=== PATIENT | female | born 1960 | race Two or more races ===

== ENCOUNTER 2024-10-20 09:51 | Inpatient (IN) | payer MEDICAID ==
[~2024-10-20] VITALS: Ht 149.9 cm; Wt 97.1 kg
--- NOTE | 2024-10-20 10:25 | ED.PDOC ---
History of Present Illness HPI Comments 64-year-old female is Urdu-speaking presents to the ER with prior medical history of hypertension in the chief complaint of abdominal pain. Patient reports on having N/V/D few days with abdominal pain. Denies chills, fever, SOB, CP. No other associated symptoms, modifiers, recent injuries or sick contac ts present at this time. Chief Complaint: Nausea/Vomiting Time Seen by MD: 10:15 Primary Care Provider: MELONY Reviewed Notes: Nurses Notes, Medications, Allergies Allergies: Coded Allergies: NO KNOWN ALLERGIES (Unverified , 09/28/12) Home Meds No Active Prescriptions or Reported Meds Information Source: Patient Mode of Arrival: Ambulatory Severity: Moderate Timing: Days Duration: Since onset, Days Prehospital treatment: None Past Medical History PAST MEDICAL HISTORY: HTN Surgical History: Denies all surgeries TRANSPORT ANALYST History: No Pertinent TRANSPORT ANALYST History Family History Family History: Reviewed,noncontributory to illness, Unknown Social History Smoker: Non-Smoker Alcohol: Denies ETOH Use Drugs: Denies Drug Use Lives In: Home Constitutional: denies: chills, diaphoresis, fatigue, fever, malaise, sweats, weakness, others EENTM: denies: blurred vision, double vision, ear bleeding, ear discharge, ear drainage, ear pain, ear ringing, eye pain, eye redness, hearing loss, mouth pain, mouth swelling, nasal discharge, nose bleeding, nose congestion, nose pain, photophobia, tearing, throat pain, throat swelling, voice changes, others Respiratory: denies: cough, hemoptysis, orthopnea, SOB at rest, shortness of breath, SOB with excertion, stridor, wheezing, others Cardiovascular: denies: chest pain, dizzy spells, diaphoresis, Dyspnea on exertion, edema, irregular heart beat, left arm pain, lightheadedness, palpitations, PND, syncope, others Gastrointestinal: reports: abdominal pain, diarrhea, nausea, vomiting; denies: abdomen distended, blood streaked bowels, constipated, dysphagia, difficulty swallowing, hematemesis, melena, poor appetite, poor fluid intake, rectal bleeding, rectal pain, others Genitourinary: denies: abnormal vagina bleeding, burning, dyspareunia, dysuria, flank pain, frequency, hematuria, incontinence, pain, , vagina disc harge, urgency, others Neurological: denies: dizziness, fainting, headache, left sided numbness, left sided weakness, numbness, paresthesia, pre-existing deficit, right sided numbness, right sided weakness, seizure, speech problems, tingling, tremors, weakness, others Musculoskeletal: denies: back pain, gout, joint pain, joint swelling, muscle pain, muscle stiffness, neck pain, others Integumetry: denies: bruises, change in color, change in hair/nails, dryness, laceration, lesions, lumps, rash, wounds, others Allergic/Immunocompromised: denies: Difficulty Healing, Frequent Infections, Hives, Itching, others Hematologic/Lymphatic: denies: anemia, blood clots, easy bleeding, easy bruising, swollen glands, others Endocrine: denies: excessive hunger, excessive sweating, excessive thirst, excessive urination, flushing, intolerance to cold, intolerance to heat, unexplained weight gain, unexplained weight loss, others Psychiatric: denies: anxiety, bipolar disorder, depression, hopeless, panic disorder, schizophrenia, sleepless, suicidal, others All Other Systems: Reviewed and Negative Physical Exam General Appearance: Moderate Distress, Normal HEENT: Normal ENT Inspection, Pharynx Normal, TMs Normal Neck: Full Range of Motion, Non-Tender, Normal, Normal Inspection Respiratory: Chest Non-Tender, Lungs Clear, No Accessory Muscle Use, No Respiratory Distress, Normal Breath Sounds Cardiovascular: No Edema, No JVD, No Murmur, No Gallop, Normal Peripheral Pulses, Regular Rate/Rhythm Breast Exam: Deferred Gastrointestinal: Diffuse, No Organomegaly, No Pulsatile Mass, Normal Bowel Sounds, Soft Genitalia: Deferred Pelvic: Deferred Rectal: Deferred Extremities: No calf tenderness, Normal capillary refill, Normal inspection, Normal range of motion, Non-tender, No pedal edema Musculoskeletal : Apperance: Normal Neurologic: Alert, 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 Was a procedure done?: No EKG EKG : Pulse Rate (adult): 117 [place]: Normal Cardiac Rhythm: ST Block: None Hypertrophy: None ST: Normal Differential Dx Considerations may include: Colitis Electrolyte imbalance X-Ray, Labs, Meds, VS Vital Signs Date Time Temp Pulse Resp B/P (MAP) Pulse Ox O2 Delivery O2 Flow Rate FiO2 10/20/24 12:12 98.8 117 16 134/66 (88) 94 98.8 10/20/24 12:12 118 16 94 Room Air 10/20/24 10:56 117 10/20/24 10:25 117 10/20/24 09:59 117 10/20/24 09:52 98.7 129 22 159/83 96 98.7 Lab Test 10/20/24 13:03 10/20/24 11:06 10/20/24 11:05 Range/Units Lactic Acid Level 1.5 0.4-2.0 mmol/L White Blood Count 18.4 H 4.4-10.8 10^3/uL Red Blood Count 4.54 4.0-5.20 10^6/uL Hemoglobin 14.8 12.2-16.2 g/dL Hematocrit 44.5 36.0-46.0 % Mean Corpuscular Volume 98.1 80.0-100.0 fL Mean Corpuscular Hemoglobin 32.6 H 28.0-32.0 pg Mean Corpuscular Hemoglobin Concent 33.2 32.0-36.0 g/dL Red Cell Distribution Width 15.1 H 11.8-14.3 % Platelet Count 240 140-450 10^3/uL Mean Platelet Volume 8.7 6.9-10.8 fL Neutrophils (%) (Auto) 37.0-80.0 % Lymphocytes (%) (Auto) 10.0-50.0 % Monocytes (%) (Auto) 0.0-12.0 % Basophils (%) (Auto) 0.0-2.0 % Neutrophils # (Auto) 1.6-8.6 10 ^3/uL Lymphocytes # (Auto) 0.4-5.4 10 ^3/uL Monocytes # (Auto) 0-1.3 10 ^3/uL Differential Total Cells Counted 100.0 100 Neutrophils % (Manual) 71 37.0-80.0 Band Neutrophils % (Manual) 14 Lymphocytes % (Manual) 10 10.0-50.0 Monocytes % (Manual) 5 0-12 Eosinophils % (Manual) 0 0-7 Basophils % (Manual) 0 0.0-2.0 Metamyelocytes % (manual) 0 Myelocytes % (Manual) 0 Promyelocytes % (Manual) 0 Blast Cells % (Manual) 0 Reactive Lymphocytes 0 Platelet Estimate Adequate Poikilocytosis (manual) Slight Anisocytosis (manual) Slight Stomatocytes Few Troponin I High Sensitivity 75 *H </=34 ng/L Sodium Level 134 L 136-145 mmol/L Potassium Level 3.3 L 3.5-5.1 mmol/L Chloride Level 102 98-107 mmol/L Carbon Dioxide Level 18 L 20-31 mmol/L Anion Gap 14 5-15 Blood Urea Nitrogen 11 9-23 mg/dL Creatinine 1.19 H 0.550-1.02 mg/dL Glomerular Filtration Rate Calc 51 >90 mL/min BUN/Creatinine Ratio 9.2 L 10.0-20.0 Serum Glucose 175 H 74-106 mg/dL Calcium Level 9.3 8.7-10.4 mg/dL Total Bilirubin 0.7 0.2-1.0 mg/dL Aspartate Amino Transferase (AST) 32 13-40 U/L Alanine Aminotransferase (ALT) 26 7-40 U/L Alkaline Phosphatase 100 46-116 U/L Total Protein 8.2 5.7-8.2 g/dL Albumin 5.0 H 3.2-4.8 g/dL Lipase 26 12-53 U/L Current Medications Medications (Trade) Dose Ordered Sig/Olga Route Start Time Stop Time Status Last Admin Ondansetron HCl (Zofran) 4 mg ONCE ONCE IV 10/20/24 10:15 10/20/24 10:16 DC 10/20/24 15:41 Morphine Sulfate 4 mg ONCE ONCE IV 10/20/24 10:15 10/20/24 10:16 DC 10/20/24 15:40 Pantoprazole Sodium (Protonix) 40 mg ONCE ONCE IV 10/20/24 10:15 10/20/24 10:16 DC 10/20/24 15:40 Ceftriaxone Sodium 50 ml @ 100 mls/hr ONCE ONCE IV 10/20/24 12:00 10/20/24 12:29 DC 10/20/24 16:03 Metronidazole 100 ml @ 100 mls/hr ONCE ONCE IV 10/20/24 12:00 10/20/24 12:59 DC 10/20/24 15:40 Sodium Chloride 1,000 ml @ 1,000 mls/hr Q1H ONCE IV 10/20/24 12:00 10/20/24 12:59 DC 10/20/24 15:41 Patient alert. Complaining of abdominal pain. Vitals stable. Answering questions. Potassium is low. Was given potassium. Establish intravenous access. Was given fluids. Was given Rocephin. Was given Flagyl. WBC elevated. Tachycardia. Blood sugar elevated. Cardiac marker elevated. Explained to the patient. Continue to monitor. Time of 1ST Reevaluation: 10:45 Reevaluation 1ST: Unchanged Patient Education/Counseling: Diagnosis, Treatment, Prognosis Family Education/Counseling: No Family Present SEPSIS Sepsis Screen Date sepsis recognized/suspect: Oct 20, 2024 Time Sepsis recognized/suspect: 951 Recent Procedure: No On Antibiotic Therapy: No Respiratory Rate >20: Yes Heart Rate >90: Yes Temp<36 C (96.8 F) or >38.3 C: No SBP <90 or MAP <65 mmHG: No New Acute Mental Status Change: No Is the patient on CPAP, BIPAP,: No Physician Orders Electrocardigram (10/20/24 10:15) Electrocardigram (10/20/24 11:15) Electrocardigram (10/20/24 13:15) Urinalysis (10/20/24 10:14) Ct Ab Pel Wo Con-No Oral Or Iv (10/20/24 10:14) Blood Culture (10/20/24 11:57) Sodium Chloride 0.9% (10/20/24 12:00) Echo 2d Mode Cardiac Dop (10/20/24 13:11) Abdomen Limited (10/20/24 13:11) Vital Signs Date Time Temp Pulse Resp B/P (MAP) Pulse Ox O2 Delivery O2 Flow Rate FiO2 10/20/24 12:12 98.8 117 16 134/66 (88) 94 98.8 10/20/24 12:12 118 16 94 Room Air 10/20/24 10:56 117 10/20/24 10:25 117 10/20/24 09:59 117 10/20/24 09:52 98.7 129 22 159/83 96 98.7 Laboratory Tests Test 10/20/24 11:06 10/20/24 13:03 White Blood Count 18.4 10^3/uL (4.4-10.8) H Lactic Acid Level 1.5 mmol/L (0.4-2.0) Medications Medications Dose Ordered Sig/Olga Route Start Time Stop Time Status Last Admin Dose Admin Ceftriaxone Sodium 50 ml @ 100 mls/hr ONCE ONCE IV 10/20/24 12:00 10/20/24 12:29 DC 10/20/24 16:03 Metronidazole 100 ml @ 100 mls/hr ONCE ONCE IV 10/20/24 12:00 10/20/24 12:59 DC 10/20/24 15:40 Morphine Sulfate 4 mg ONCE ONCE IV 10/20/24 10:15 10/20/24 10:16 DC 10/20/24 15:40 Ondansetron HCl 4 mg ONCE ONCE IV 10/20/24 10:15 10/20/24 10:16 DC 10/20/24 15:41 Pantoprazole Sodium 40 mg ONCE ONCE IV 10/20/24 10:15 10/20/24 10:16 DC 10/20/24 15:40 Sodium Chloride 1,000 ml @ 1,000 mls/hr Q1H ONCE IV 10/20/24 12:00 10/20/24 12:59 DC 10/20/24 15:41 Departure 1 Departure Time of Disposition: 17:23 Impression: Primary Impression: Sepsis, unspecified organism Qualified Codes: A41.9 - Sepsis, unspecified organism Additional Impressions: Demand ischemia Uncontrolled diabetes mellitus Qualified Codes: E13.65 - Other specified diabetes mellitus with hyperglycemia Disposition: ADMITTED INPATIENT Admit to: Med Surg Condition: Guarded e-Prescriptions No Active Prescriptions or Reported Meds Critical Care Note Critical Care Time?: Yes (90 min-critical care time only) Stability Stability form required: No Heart Score Heart Score: Heart Score Response (Comments) Value History Slightly Suspicious 0 EKG Normal 0 Age 45-64 1 Risk Factors >3 or Hx ASHD 2 Troponin >3 x's Normal limit 2 Total 5 I personally scribed for RUBÉN PAIGE MD ([email or web address]) on 10/20/24 at 10:25. Electronically submitted by Hardeep Hernandez ([employer]). I personally scribed for RUBÉN PAIGE MD ([email or web address]) on 10/20/24 at 10:26. Electronically submitted by Hardeep Hernandez ([employer]). RUBÉN PAIGE MD Oct 20, 2024 10:25
--- NOTE | 2024-10-20 10:56 | DVH ---
Indication: upper abd pain n/v/d Technique: CT axial images of the abdomen and pelvis are obtained without contrast. Coronal and sagit kati reformats were obtained. Radiation Dose Information: CTDI volume is 13.69 mGy. Dose-length product is 707.95 mGy*cm Comparison: None FINDINGS: There is limited interpretation of the abdomen and pelvis without administration of intravenous contr ast. Lung bases demonstrate atelectasis. Adrenal glands, spleen, pancreas and liver unremarkable in shape. No CT evidence for cholelithiasis. Gallbladder distention and pericholecystic /gallbladder wall edema No hydronephrosis, nephrolithiasis. Stomach moderately distended. Small bowel loops normal in caliber. No secondary signs for appendicitis. Abdominal aortic atherosclerotic disease. Bladder nondistended. No free pelvic fluid. No inguinal lym phadenopathy. [id number] bilateral sacroiliac degenerative joint disease. Lagn-ss-byjpddid thoracolumbar dege nerative disc disease. IMPRESSION: No hydronephrosis/ nephrolithiasis. Atherosclerotic disease. No evidence for bowel obstruction. Gallbladder distention and pericholecystic/ gallbladder wall edema. Recommend abdominal ultrasound t o further characterize. No hydronephrosis / nephrolithiasis. Other findings as described.
[2024-10-20 11:43] LABS: Hematocrit 44.5 % (36.0-46.0); Hemoglobin 14.8 g/dL (12.2-16.2); Mean Corpuscular Hemoglobin 32.6 pg (28.0-32.0); Mean Corpuscular Volume 98.1 fL (80.0-100.0)
[2024-10-20 11:53] LABS: Alanine Aminotransferase 26 U/L (7-40); Albumin 5.0 g/dL (3.2-4.8); Alkaline Phosphatase 100 U/L (46-116); Anion Gap 14 (5-15); BUN/Creatinine Ratio 9.2 (10.0-20.0); Bilirubin, Total 0.7 mg/dL (0.2-1.0); Blood Urea Nitrogen 11 mg/dL (9-23); Calcium 9.3 mg/dL (8.7-10.4); Carbon Dioxide 18 mmol/L (20-31); Chloride 102 mmol/L (98-107); Glucose 175 mg/dL (74-106); Lipase 26 U/L (12-53); Potassium 3.3 mmol/L (3.5-5.1); Sodium 134 mmol/L (136-145); Total Protein 8.2 g/dL (5.7-8.2)
[2024-10-20 12:26] LABS: Anisocytosis Slight; Stomatocytes Few; Total Cells Counted 100.0 (100)
--- NOTE | 2024-10-20 12:43 | DVHHP2 ---
Admitting Diagnosis: Abdominal pain History of Present Illness 64-year-old female is [place]ib[place]ian-speaking presents to the ER with prior medical history of hypertension in the chief complaint of abdominal pain. Patient reports on having N/V/D few days with abdominal pain. Denies chills, fever, SOB, CP. No other associated symptoms, modifiers, recent injuries or sick contacts present at this time. PAST MEDICAL HISTORY: HTN Surgical History: Denies all surgeries CUSHION ASSEMBLER History: No Pertinent CUSHION ASSEMBLER History Family History Family History: Reviewed,noncontributory to illness, Unknown Social History Smoker: Non-Smoker Alcohol: Denies ETOH Use Drugs: Denies Drug Use Lives In: Home Patient Family History: Family history: Diabetes mellitus G8 MOTHER Allergies: Coded Allergies: NO KNOWN ALLERGIES (Unverified , 09/28/12) Home Meds No Active Prescriptions or Reported Meds Vital Signs Vital Signs Date Time Temp Pulse Resp B/P (MAP) Pulse Ox O2 Delivery O2 Flow Rate FiO2 10/20/24 12:12 98.8 117 16 134/66 (88) 94 98.8 10/20/24 12:12 Room Air Physical Exam Generally-64 years old woman, overweight, sitting on chair. Mild distress HEENT-atraumatic normocephalic Heart-sinus tachycardic Lungs clear to auscultate bilaterally Abdomen soft, mild tender, nondistended Musculoskeletal-no edema cyanosis AO x3, no focal deficits SEPSIS Sepsis Screen Date sepsis recognized/suspect: Oct 20, 2024 Time Sepsis recognized/suspect: 951 Recent Procedure: No On Antibiotic Therapy: No Respiratory Rate >20: Yes Heart Rate >90: Yes Temp<36 C (96.8 F) or >38.3 C: No SBP <90 or MAP <65 mmHG: No New Acute Mental Status Change: No Is the patient on CPAP, BIPAP,: No Physician Orders Electrocardigram (10/20/24 10:15) Electrocardigram (10/20/24 11:15) Electrocardigram (10/20/24 13:15) Urinalysis (10/20/24 10:14) Ct Ab Pel Wo Con-No Oral Or Iv (10/20/24 10:14) Troponin-I Hs (10/20/24 11:14) Blood Culture (10/20/24 11:57) Lactic Acid W/ Reflex Order (10/20/24 11:57) Sodium Chloride 0.9% (10/20/24 12:00) Echo 2d Mode Cardiac Dop (10/20/24 13:11) Abdomen Limited (10/20/24 13:11) Admit (10/20/24 13:15) Code Status (10/20/24 13:15) Vital Signs .PER UNIT PROTOCOL (10/20/24 13:15) Review Orders With Adm.Md (10/20/24 13:15) Encourage Activity As Tolerate (10/20/24 13:15) Npo (Nothing By Mouth) Diet (10/20/24 Lunch) Sodium Chloride Lock (Saline Lock Ns) (10/20/24 14:00) Docusate Sodium Capsule (Colace Capsule) (10/20/24 13:15) Acetaminophen Tablet (Tylenol Tablet) (10/20/24 13:15) Notify Md Of Changes From Base (10/20/24 13:15) Advance Directive (10/20/24 13:15) Patient Condition (10/20/24 13:15) Allergies (10/20/24 13:15) Hydrocodone-Acet 5/325mg Tab ([place] 5/32 (10/20/24 13:15) Hydromorphone Injection (Dilaudid Inject (10/20/24 13:15) Ondansetron Hcl (Zofran) (10/20/24 13:15) Ceftriaxone 1gm/50ml D5w (Rocephin) (10/21/24 09:00) Metronidazole 500mg/100ml (Flagyl 500mg/ (10/20/24 13:15) Vital Signs Date Time Temp Pulse Resp B/P (MAP) Pulse Ox O2 Delivery O2 Flow Rate FiO2 10/20/24 12:12 98.8 117 16 134/66 (88) 94 98.8 10/20/24 12:12 118 16 94 Room Air 10/20/24 10:56 117 10/20/24 10:25 117 10/20/24 09:59 117 10/20/24 09:52 98.7 129 22 159/83 96 98.7 Laboratory Tests Test 10/20/24 11:06 10/20/24 13:03 White Blood Count 18.4 10^3/uL (4.4-10.8) H Lactic Acid Level Pending Results Labs Test 10/20/24 13:03 10/20/24 11:06 10/20/24 11:05 Range/Units White Blood Count 18.4 H 4.4-10.8 10^3/uL Red Blood Count 4.54 4.0-5.20 10^6/uL Hemoglobin 14.8 12.2-16.2 g/dL Hematocrit 44.5 36.0-46.0 % Mean Corpuscular Volume 98.1 80.0-100.0 fL Mean Corpuscular Hemoglobin 32.6 H 28.0-32.0 pg Mean Corpuscular Hemoglobin Concent 33.2 32.0-36.0 g/dL Red Cell Distribution Width 15.1 H 11.8-14.3 % Platelet Count 240 140-450 10^3/uL Mean Platelet Volume 8.7 6.9-10.8 fL Neutrophils (%) (Auto) 37.0-80.0 % Lymphocytes (%) (Auto) 10.0-50.0 % Monocytes (%) (Auto) 0.0-12.0 % Basophils (%) (Auto) 0.0-2.0 % Neutrophils # (Auto) 1.6-8.6 10 ^3/uL Lymphocytes # (Auto) 0.4-5.4 10 ^3/uL Monocytes # (Auto) 0-1.3 10 ^3/uL Differential Total Cells Counted 100.0 100 Neutrophils % (Manual) 71 37.0-80.0 Band Neutrophils % (Manual) 14 Lymphocytes % (Manual) 10 10.0-50.0 Monocytes % (Manual) 5 0-12 Eosinophils % (Manual) 0 0-7 Basophils % (Manual) 0 0.0-2.0 Metamyelocytes % (manual) 0 Myelocytes % (Manual) 0 Promyelocytes % (Manual) 0 Blast Cells % (Manual) 0 Reactive Lymphocytes 0 Platelet Estimate Adequate Poikilocytosis (manual) Slight Anisocytosis (manual) Slight Stomatocytes Few Troponin I High Sensitivity 75 *H </=34 ng/L Sodium Level 134 L 136-145 mmol/L Potassium Level 3.3 L 3.5-5.1 mmol/L Chloride Level 102 98-107 mmol/L Carbon Dioxide Level 18 L 20-31 mmol/L Anion Gap 14 5-15 Blood Urea Nitrogen 11 9-23 mg/dL Creatinine 1.19 H 0.550-1.02 mg/dL Glomerular Filtration Rate Calc 51 >90 mL/min BUN/Creatinine Ratio 9.2 L 10.0-20.0 Serum Glucose 175 H 74-106 mg/dL Calcium Level 9.3 8.7-10.4 mg/dL Total Bilirubin 0.7 0.2-1.0 mg/dL Aspartate Amino Transferase (AST) 32 13-40 U/L Alanine Aminotransferase (ALT) 26 7-40 U/L Alkaline Phosphatase 100 46-116 U/L Total Protein 8.2 5.7-8.2 g/dL Albumin 5.0 H 3.2-4.8 g/dL Lipase 26 12-53 U/L Primary Diagnosis Sepsis likely due to intra-abdominal infection Gallbladder distended rule out cholecystitis Plan Start ceftriaxone, Flagyl for sepsis likely due to intra-abdominal infection Ultrasound to assess for cholecystitis NPO except meds IV fluids surgery consult Rate control Antiemetic PPI for GI prophylaxis Full code SCD for DVT prophylaxis Plan discussed with: Patient Problems List: (1) Sepsis Status: Acute Date of Service: Oct 20, 2024 Billing Provider: URI MCINTOSH MD Common Visit Codes: [id number] INP/OBS CARE (HIGH) URI MCINTOSH MD Oct 20, 2024 12:43
[2024-10-20] MEDS ORDERED: DOCUSATE SOD 100 MG CAP PO PRN (13:15)
[2024-10-20] MEDS ORDERED: SODIUM CHLORIDE 0.9% 1,000 ML IV ONE (13:30)
--- NOTE | 2024-10-20 14:05 | DVH ---
INDICATION: RUQ to assess for cholecystitis TECHNIQUE: Multiple real-time sonographic images were obtained of the right upper quadrant. COMPARISON: None FINDINGS: The liver demonstrates increased echotexture without focal mass lesions. The liver measure s 16.2 cm. There is no intrahepatic or extrahepatic ductal dilatation. The common duct measures 0.4 cm. The gallbladder is without evidence of stone or sludge. The gallbladder wall measures 0.3 cm and is w ithin normal limits. The right kidney measures 9.6 cm. The right kidney is normal in contour, size, and shape. The echogen icity is normal. There is no hydronephrosis. The pancreas is not well visualized due to overlying bowel gas. IMPRESSION: Hepatic steatosis. Hepatomegaly.
[2024-10-20] MEDS: MORPHINE SULFATE 4 MG/ML SYR/VIAL IV ONE (15:40)
[2024-10-20] MEDS: PANTOPRAZOLE 40 MG/10 ML VIAL INJ IV ONE (15:40)
[2024-10-20] MEDS: ONDANSETRON HCL 4 MG/2 ML VIAL IV ONE (15:41)
[2024-10-20] MEDS: SODIUM CHLORIDE 0.9% 1,000 ML IV ONE ×5 (15:41→19:41)
[2024-10-20] MEDS: SODIUM CHLOR 0.9% PF (SALINE LOCK) 10ML VIAL/SYR IV SCH (15:42)
[2024-10-20] MEDS: cefTRIAXone 1GM/50ML D5W 50 ML IV ONE (16:03)
[2024-10-20 21:55] LABS: Urine Protein, UAD 2+ (Negative)
[2024-10-20] MEDS: ENOXAPARIN SOD 80 MG/0.8ML SYRINGE SC ONE (23:32)
[2024-10-20] MEDS: HYDROcodone-ACET 5/325MG TAB PO PRN (23:33)
--- NOTE | 2024-10-20 23:59 | DVHINCON2 ---
Date of service: Oct 20, 2024 Referring Physician Guillermina Reason for Consultation Elevated troponin. History of Present Illness This is a 64-year-old [place] speaking female with a past medical history of hypertension who presented to the ED with complaints of complaint of abdominal pain. Patient reports associated N/V/D for a few days. WBC 18.4, TROP 118 > 148 > [address] CT ABD PEL shows no hydronephrosis/ nephrolithiasis. Atherosclerotic disease. No evidence for bowel obstruction. Gallbladder distention and pericholecystic/ gallbladder wall edema. No hydronephrosis/nephrolithiasis. Abdominal US revealed hepatic steatosis and hepatomegaly.Patient was admitted to the hospital. I am asked to consult on this patient. Family History: Family history: Diabetes mellitus G8 MOTHER Allergies: Coded Allergies: NO KNOWN ALLERGIES (Unverified , 09/28/12) Home Meds No Active Prescriptions or Reported Meds Current Medications Current Medications Medications (Trade) Dose Ordered Sig/Olga Route PRN Reason Start Time Stop Time Status Last Admin Sodium Chloride (Saline Lock Ns) 10 ml Q8HR IV 10/20/24 14:00 10/20/24 15:42 Docusate Sodium (Colace Capsule) 100 mg BIDPRN PRN PO FOR CONSTIPATION 10/20/24 13:15 Acetaminophen (Tylenol Tablet) 650 mg Q6HP PRN PO PAIN SCALE 1-3 OR TEMP>100.4 10/20/24 13:15 Acetaminophen/ Hydrocodone Bitart ([place] 5/325MG Tab) 1 tab Q4HP PRN PO MODERATE PAIN (4-6 PAIN SCALE) 10/20/24 13:15 Hydromorphone HCl (Dilaudid Injection) 0.5 mg Q4HP PRN IV SEVERE PAIN (7-10 PAIN SCALE) 10/20/24 13:15 Ondansetron HCl (Zofran) 4 mg Q4HP PRN IV NAUSEA / VOMITING 10/20/24 13:15 Ceftriaxone Sodium 50 ml @ 100 mls/hr DAILY@09 IV 10/21/24 09:00 Metronidazole 100 ml @ 100 mls/hr Q8HR IV 10/20/24 22:00 Review of Systems Constitutional: denies: chills, diaphoresis, fatigue, fever, malaise, sweats, weakness, others EENTM: denies: blurred vision, double vision, ear bleeding, ear discharge, ear drainage, ear pain, ear ringing, eye pain, eye redness, hearing loss, mouth pain, mouth swelling, nasal discharge, nose bleeding, nose congestion, nose pain, photophobia, tearing, throat pain, throat swelling, voice changes, others Respiratory: denies: cough, hemoptysis, orthopnea, SOB at rest, shortness of breath, SOB with excertion, stridor, wheezing, others Cardiovascular: denies: chest pain, dizzy spells, diaphoresis, Dyspnea on exertion, edema, irregular heart beat, left arm pain, lightheadedness, palpitations, PND, syncope, others Gastrointestinal: reports: abdominal pain, diarrhea, nausea, vomiting; denies: abdomen distended, blood streaked bowels, constipated, dysphagia, difficulty swallowing, hematemesis, melena, poor appetite, poor fluid intake, rectal bleeding, rectal pain, others Genitourinary: denies: abnormal vagina bleeding, burning, dyspareunia, dysuria, flank pain, frequency, hematuria, incontinence, pain, , vagina discharge, urgency, others Neurological: denies: dizziness, fainting, headache, left sided numbness, left sided weakness, numbness, paresthesia, pre-existing deficit, right sided numbness, right sided weakness, seizure, speech problems, tingling, tremors, weakness, others Musculoskeletal: denies: back pain, gout, joint pain, joint swelling, muscle pain, muscle stiffness, neck pain, others Integumetry: denies: bruises, change in color, change in hair/nails, dryness, laceration, lesions, lumps, rash, wounds, others Allergic/Immunocompromised: denies: Difficulty Healing, Frequent Infections, Hives, Itching, others Hematologic/Lymphatic: denies: anemia, blood clots, easy bleeding, easy bruising, swollen glands, others Endocrine: denies: excessive hunger, excessive sweating, excessive thirst, excessive urination, flushing, intolerance to cold, intolerance to heat, unexplained weight gain, unexplained weight loss, others Psychiatric: denies: anxiety, bipolar disorder, depression, hopeless, panic disorder, schizophrenia, sleepless, suicidal, others All Other Systems: Reviewed and Negative Vital Signs Vital Signs Date Time Temp Pulse Resp B/P (MAP) Pulse Ox O2 Delivery O2 Flow Rate FiO2 10/20/24 15:40 118 20 139/51 10/20/24 15:23 98.3 97 98.3 10/20/24 12:12 Room Air Physical Exam GENERAL: Alert and oriented x 3. No acute distress. EYES: PERRL, EOMI. Anicteric. HENT: Moist mucous membranes. LUNGS: Clear to auscultation bilaterally. CARDIOVASCULAR: Irregular rate and rhythm. ABDOMEN: Soft, nontender and nondistended. EXTREMITIES: No edema. NEUROLOGIC: No focal neurological deficits. SKIN: Warm, dry. Labs/Diagnostic Data Labs Test 10/20/24 21:00 10/20/24 20:21 10/20/24 13:03 10/20/24 11:06 Range/Units Troponin I High Sensitivity 117 *H </=34 ng/L Urine Color Dark-yellow Yellow Urine Clarity Ex.turbid Clear Urine pH 5.0 5.0-9.0 Urine Specific [place] 1.022 1.001-1.035 Urine Protein 2+ H Negative Urine Ketones Trace Negative Urine Blood Trace H Negative /uL Urine Nitrite Negative Negative Urine Bilirubin Negative Negative Urine Urobilinogen Normal Negative mg/dL Urine Leukocyte Esterase 2+ Negative /uL Urine RBC 7 0 - 4 /hpf Urine Microscopic WBC 18 H 0-5 /HPF Urine Squamous Epithelial Cells Few <5 /hpf Urine Bacteria Few H None Seen /hpf Urine Mucus Few None Seen Urine Glucose Trace Normal mg/dL Lactic Acid Level 1.5 0.4-2.0 mmol/L White Blood Count 18.4 H 4.4-10.8 10^3/uL Red Blood Count 4.54 4.0-5.20 10^6/uL Hemoglobin 14.8 12.2-16.2 g/dL Hematocrit 44.5 36.0-46.0 % Mean Corpuscular Volume 98.1 80.0-100.0 fL Mean Corpuscular Hemoglobin 32.6 H 28.0-32.0 pg Mean Corpuscular Hemoglobin Concent 33.2 32.0-36.0 g/dL Red Cell Distribution Width 15.1 H 11.8-14.3 % Platelet Count 240 140-450 10^3/uL Mean Platelet Volume 8.7 6.9-10.8 fL Neutrophils (%) (Auto) 37.0-80.0 % Lymphocytes (%) (Auto) 10.0-50.0 % Monocytes (%) (Auto) 0.0-12.0 % Basophils (%) (Auto) 0.0-2.0 % Neutrophils # (Auto) 1.6-8.6 10 ^3/uL Lymphocytes # (Auto) 0.4-5.4 10 ^3/uL Monocytes # (Auto) 0-1.3 10 ^3/uL Differential Total Cells Counted 100.0 100 Neutrophils % (Manual) 71 37.0-80.0 Band Neutrophils % (Manual) 14 Lymphocytes % (Manual) 10 10.0-50.0 Monocytes % (Manual) 5 0-12 Eosinophils % (Manual) 0 0-7 Basophils % (Manual) 0 0.0-2.0 Metamyelocytes % (manual) 0 Myelocytes % (Manual) 0 Promyelocytes % (Manual) 0 Blast Cells % (Manual) 0 Reactive Lymphocytes 0 Platelet Estimate Adequate Poikilocytosis (manual) Slight Anisocytosis (manual) Slight Stomatocytes Few Test 10/20/24 11:05 Range/Units Sodium Level 134 L 136-145 mmol/L Potassium Level 3.3 L 3.5-5.1 mmol/L Chloride Level 102 98-107 mmol/L Carbon Dioxide Level 18 L 20-31 mmol/L Anion Gap 14 5-15 Blood Urea Nitrogen 11 9-23 mg/dL Creatinine 1.19 H 0.550-1.02 mg/dL Glomerular Filtration Rate Calc 51 >90 mL/min BUN/Creatinine Ratio 9.2 L 10.0-20.0 Serum Glucose 175 H 74-106 mg/dL Calcium Level 9.3 8.7-10.4 mg/dL Total Bilirubin 0.7 0.2-1.0 mg/dL Aspartate Amino Transferase (AST) 32 13-40 U/L Alanine Aminotransferase (ALT) 26 7-40 U/L Alkaline Phosphatase 100 46-116 U/L Total Protein 8.2 5.7-8.2 g/dL Albumin 5.0 H 3.2-4.8 g/dL Lipase 26 12-53 U/L Assessment Sepsis likely due to intra-abdominal infection. Gallbladder distended. Elevated troponin. Plan/Recommendation I agree with your ongoing assessment and care of plan. Trend troponin. Echocardiogram. Dilaudid and [place] for pain management. IV antibiotics as ordered. Additional plan as per the hospital course. A total of 45 minutes was spent reviewing the patient record, examining the patient, making a diagnostic and therapeutic plan, discussing this plan with medical personnel, following up on diagnostic studies and following the patient for clinical stability excluding any and all procedures. At least 50% of this time was spent in direct, [id number] contact. Plan discussed with: Patient ALMA DELIA SONI MD Oct 20, 2024 22:24
[2024-10-21 00:38] VITALS: RESP 18
[2024-10-21] MEDS: ONDANSETRON HCL 4 MG/2 ML VIAL IV PRN (05:47)
--- NOTE | 2024-10-21 06:43 | ECG ---
[facility] Test Date: 2024-10-20 Test Time: 09:59:34 Pat Name: SANDI CANELA Department: ED Room: 0220 Gender: F [employer] Advisor: GUERITA : 1960 Requested By: STACY TORREZ Order Number: [id number] Reading MD: Rolando Campos Measurements Intervals [place] Rate: 117 P: 63 IA: 126 QRS: 41 QRSD: 87 T: -83 QT: 293 QTc: 409 Interpretive Statements Sinus tachycardia Consider right atrial enlargement Consider RVH w/ secondary repol abnormality LVH with secondary repolarization abnormality Electronically Signed On 10-25-2024 14:21:57 PDT by Rolando Campos Please click the below link to view image of tracing.
--- NOTE | 2024-10-21 06:43 | ECG ---
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
[2024-10-21 07:30] VITALS: PULSE 106; RESP 14; O2SAT 95
[2024-10-21] MEDS: cefTRIAXone 1GM/50ML D5W 50 ML IV SCH (09:08)
[2024-10-21] MEDS: HYDROmorphone HCL 2 MG/ML VL/or syr IV PRN (10:53)
[2024-10-21] MEDS: SODIUM CHLORIDE 0.9% 1,000 ML IV SCH (11:12)
[2024-10-21] MEDS: POTASSIUM CHL 20 Meq TABLET PO ONE (11:38)
--- NOTE | 2024-10-21 12:20 | DVHPN2 ---
Subjective The patient seen and examined at bedside. Still complains of diarrhea and abdominal pain. Reviewed: Care Plan, H&P, Labs, Medications, Previous Orders, Radiology Changes from previous H/P or p: No Changes Objective Vitals Vital Signs Date Time Temp Pulse Resp B/P (MAP) Pulse Ox O2 Delivery O2 Flow Rate FiO2 10/21/24 11:49 103 22 115/47 10/21/24 11:00 96 10/21/24 07:30 99.4 99.4 10/21/24 07:30 Room Air* 0 21 Intake/Output Intake and Output 10/21/24 07:00 Intake Total 1150 ml Balance 1150 ml Intake IV Total 1150 ml General Appearance: Alert, Cooperative HEENT: Atraumatic, PERRLA, EOMI, Mucous membr. moist/pink Neck: Supple Lungs: Clear to auscultation, Normal air movement Cardiovascular: Regular rate, Normal S1, Normal S2, No murmurs, Gallops, Rubs Abdomen: Normal bowel sounds, Soft, No tenderness Neuro: Cranial nerves 3-12 NL Psych/Mental Status: Mental status NL Medications Current Medications Medications Dose Ordered Sig/Olag Route Start Time Stop Time Status Last Admin Dose Admin Sodium Chloride 10 ml Q8HR IV 10/20/24 14:00 10/21/24 06:28 10 ML Docusate Sodium 100 mg BIDPRN PRN PO 10/20/24 13:15 Acetaminophen 650 mg Q6HP PRN PO 10/20/24 13:15 Acetaminophen/ Hydrocodone Bitart 1 tab Q4HP PRN PO 10/20/24 13:15 10/20/24 23:33 1 TAB Hydromorphone HCl 0.5 mg Q4HP PRN IV 10/20/24 13:15 10/21/24 10:53 0.5 MG Ondansetron HCl 4 mg Q4HP PRN IV 10/20/24 13:15 10/21/24 10:53 4 MG Ceftriaxone Sodium 50 ml @ 100 mls/hr DAILY@09 IV 10/21/24 09:00 10/21/24 09:08 100 MLS/HR Metronidazole 100 ml @ 100 mls/hr Q8HR IV 10/20/24 22:00 10/21/24 05:45 100 MLS/HR Loperamide HCl 2 mg Q6HP PRN PO 10/21/24 11:00 Sodium Chloride 1,000 ml @ 100 mls/hr Q10H IV 10/21/24 11:00 10/21/24 11:12 100 MLS/HR Laboratory Results Laboratory Tests 10/20/24 11:05 10/20/24 11:06 Urinalysis Test 10/20/24 20:21 Urine Color Dark-yellow (Yellow) Urine Clarity Ex.turbid (Clear) Urine pH 5.0 (5.0-9.0) Urine Specific [place] 1.022 (1.001-1.035) Urine Protein 2+ (Negative) H Urine Ketones Trace (Negative) Urine Blood Trace /uL (Negative) H Urine Nitrite Negative (Negative) Urine Bilirubin Negative (Negative) Urine Urobilinogen Normal mg/dL (Negative) Urine Leukocyte Esterase 2+ /uL (Negative) Urine RBC 7 /hpf (0 - 4) Urine Microscopic WBC 18 /HPF (0-5) H Urine Squamous Epithelial Cells Few /hpf (<5) Urine Bacteria Few /hpf (None Seen) H Urine Mucus Few (None Seen) Urine Glucose Trace mg/dL (Normal) Microbiology Microbiology Date/Time Source Procedure Growth Status 10/20/24 13:03 Blood Blood Culture - Preliminary Resulted Labs and/or images reviewed: Labs reviewed by me Assessment/Plan Assessment/Plan Diarrhea Gallbladder edema,US rule out cholecystitis Sepsis Continue current management with IV antibiotic Continue immodium Continue IV fluid Advance to regular diet. Plan discussed with: Patient, Son My Orders Orders - JAGJIT NAYLOR MD Procedure Category Date Status Time Loperamide Capsule PHA 10/21/24 In Process (Imodium Capsule) 11:00 Sodium Chloride 0.9% PHA 10/21/24 In Process 11:00 C-Diff: Collect Next JESSENIA 10/21/24 In Process Specimen 10:58 Stool Wbc LAB 10/21/24 Logged 10:58 Stool Bacterial NELLI 10/21/24 Logged Culture 10:58 Date of Service: Oct 21, 2024 Billing Provider: JAGJIT NAYLOR MD Common Visit Codes: [id number] INP/OBS CARE(HIGH) JAGJIT NAYLOR MD Oct 21, 2024 12:20
[2024-10-21] MEDS: LOPERAMIDE HCL 2 MG CAP/TAB PO PRN (14:09)
[2024-10-21 15:55] VITALS: BP 133/74; PULSE 102; RESP 20; TEMP 98.4; O2SAT 98
[2024-10-21 16:41] VITALS: BP 133/74; PULSE 102; RESP 20; TEMP 98.4; O2SAT 98
--- NOTE | 2024-10-21 17:45 | DVHPN2 ---
Progress Note - Dictate Date Seen: Oct 21, 2024 Medical Necessity Reason Pt with a Central, PICC or Fol: No Subjective Patient was seen and evaluated in follow up. Patient's family are present at bedside. Patient is complaining of 8/10 abdominal pain with constipation. WBC stools is pending. vital signs Vital Sign Date Time Temp Pulse Resp B/P (MAP) Pulse Ox O2 Delivery O2 Flow Rate FiO2 10/21/24 11:49 103 22 115/47 10/21/24 11:00 96 10/21/24 07:30 99.4 99.4 10/21/24 07:30 Room Air* 0 21 Total Intake and Output 10/20/24 10/20/24 10/21/24 15:00 23:00 07:00 Intake Total 1150 ml Balance 1150 ml medications Current Medications Medications Dose Ordered Sig/Olga Route Start Time Stop Time Status Last Admin Dose Admin Sodium Chloride 10 ml Q8HR IV 10/20/24 14:00 10/21/24 06:28 10 ML Docusate Sodium 100 mg BIDPRN PRN PO 10/20/24 13:15 Acetaminophen 650 mg Q6HP PRN PO 10/20/24 13:15 Acetaminophen/ Hydrocodone Bitart 1 tab Q4HP PRN PO 10/20/24 13:15 10/20/24 23:33 1 TAB Hydromorphone HCl 0.5 mg Q4HP PRN IV 10/20/24 13:15 10/21/24 10:53 0.5 MG Ondansetron HCl 4 mg Q4HP PRN IV 10/20/24 13:15 10/21/24 10:53 4 MG Ceftriaxone Sodium 50 ml @ 100 mls/hr DAILY@09 IV 10/21/24 09:00 10/21/24 09:08 100 MLS/HR Metronidazole 100 ml @ 100 mls/hr Q8HR IV 10/20/24 22:00 10/21/24 05:45 100 MLS/HR Loperamide HCl 2 mg Q6HP PRN PO 10/21/24 11:00 Sodium Chloride 1,000 ml @ 100 mls/hr Q10H IV 10/21/24 11:00 10/21/24 11:12 100 MLS/HR objective GENERAL: Alert and oriented x 3. No acute distress. EYES: PERRL, EOMI. Anicteric. HENT: Moist mucous membranes. LUNGS: Clear to auscultation bilaterally. CARDIOVASCULAR: Irregular rate and rhythm. ABDOMEN: Soft, nontender and nondistended. EXTREMITIES: No edema. NEUROLOGIC: No focal neurological deficits. SKIN: Warm, dry. laboratory and microbiology Laboratory Tests 10/20/24 11:06 10/20/24 11:05 Test 10/20/24 11:05 Range/Units Serum Glucose 175 H 74-106 mg/dL Problem List Sepsis likely due to intra-abdominal infection. Gallbladder distended. Elevated troponin. Assessment/Plan Continued all current supportive medical care. Echocardiogram. Dilaudid and [place] for pain management. IV antibiotics as ordered. Additional plan as per the hospital course. Plan discussed with: Patient ALMA DELIA SONI MD Oct 21, 2024 11:59
[2024-10-21 20:00] VITALS: RESP 18; O2SAT 93
[2024-10-21 21:00] VITALS: BP 144/67; PULSE 105; RESP 18; TEMP 100.6; O2SAT 93
[2024-10-21] MEDS: ENOXAPARIN SOD 80 MG/0.8ML SYRINGE SC SCH (22:32)
[2024-10-22] VITALS (8 sets, daily range): BP systolic 103–136; BP diastolic 52–76; PULSE 80–99; RESP 17–20; TEMP 98.2–98.6; O2SAT 93–99
--- NOTE | 2024-10-22 14:28 | DVHPN2 ---
Subjective The patient seen and examined at bedside. Still complains of abdominal pain. No diarrhea. Reviewed: Care Plan, H&P, Labs, Medications, Previous Orders, Radiology Changes from previous H/P or p: No Changes Objective Vitals Vital Signs Date Time Temp Pulse Resp B/P (MAP) Pulse Ox O2 Delivery O2 Flow Rate FiO2 10/22/24 12:30 98.6 84 20 126/76 (93) 97 98.6 10/22/24 08:00 Room Air* 0 21 Intake/Output Intake and Output 10/22/24 07:00 Intake Total 1050 ml Output Total 175 ml Balance 875 ml Intake Oral 0 ml IV Total 1050 ml Output Stool Total 100 ml Emesis 75 ml # Voids 6 # Bowel Movements 6 General Appearance: Alert, Cooperative HEENT: Atraumatic, PERRLA, EOMI, Mucous membr. moist/pink Neck: Supple Lungs: Clear to auscultation, Normal air movement Cardiovascular: Regular rate, Normal S1, Normal S2, No murmurs, Gallops, Rubs Abdomen: Normal bowel sounds, Soft, No tenderness Neuro: Cranial nerves 3-12 NL Psych/Mental Status: Mental status NL Medications Current Medications Medications Dose Ordered Sig/Olga Route Start Time Stop Time Status Last Admin Dose Admin Sodium Chloride 10 ml Q8HR IV 10/20/24 14:00 10/22/24 05:22 10 ML Docusate Sodium 100 mg BIDPRN PRN PO 10/20/24 13:15 Acetaminophen 650 mg Q6HP PRN PO 10/20/24 13:15 Acetaminophen/ Hydrocodone Bitart 1 tab Q4HP PRN PO 10/20/24 13:15 10/22/24 09:46 1 TAB Hydromorphone HCl 0.5 mg Q4HP PRN IV 10/20/24 13:15 10/22/24 12:07 0.5 MG Ondansetron HCl 4 mg Q4HP PRN IV 10/20/24 13:15 10/22/24 10:04 4 MG Ceftriaxone Sodium 50 ml @ 100 mls/hr DAILY@09 IV 10/21/24 09:00 10/22/24 09:46 100 MLS/HR Metronidazole 100 ml @ 100 mls/hr Q8HR IV 10/20/24 22:00 10/22/24 05:23 100 MLS/HR Loperamide HCl 2 mg Q6HP PRN PO 10/21/24 11:00 10/21/24 14:09 2 MG Sodium Chloride 1,000 ml @ 100 mls/hr Q10H IV 10/21/24 11:00 10/22/24 07:00 100 MLS/HR Enoxaparin Sodium 80 mg Q12HR SC 10/21/24 22:00 10/22/24 09:47 80 MG Laboratory Results Laboratory Tests 10/20/24 11:05 10/20/24 11:06 Urinalysis Test 10/20/24 20:21 Urine Color Dark-yellow (Yellow) Urine Clarity Ex.turbid (Clear) Urine pH 5.0 (5.0-9.0) Urine Specific [place] 1.022 (1.001-1.035) Urine Protein 2+ (Negative) H Urine Ketones Trace (Negative) Urine Blood Trace /uL (Negative) H Urine Nitrite Negative (Negative) Urine Bilirubin Negative (Negative) Urine Urobilinogen Normal mg/dL (Negative) Urine Leukocyte Esterase 2+ /uL (Negative) Urine RBC 7 /hpf (0 - 4) Urine Microscopic WBC 18 /HPF (0-5) H Urine Squamous Epithelial Cells Few /hpf (<5) Urine Bacteria Few /hpf (None Seen) H Urine Mucus Few (None Seen) Urine Glucose Trace mg/dL (Normal) Microbiology Microbiology Date/Time Source Procedure Growth Status 10/21/24 11:09 Stool Stool Culture - Preliminary Resulted 10/21/24 11:09 Stool [place]iga Toxin I & II Pending Resulted 10/20/24 13:03 Blood Blood Culture - Preliminary Resulted Labs and/or images reviewed: Labs reviewed by me Assessment/Plan Assessment/Plan Diarrhea Gallbladder edema,US rule out cholecystitis Sepsis Continue current management with IV antibiotic Continue Imodium as needed. Continue IV fluid Advance to regular diet. Plan discussed with: Patient My Orders Orders - JAGJIT NAYLOR MD Procedure Category Date Status Time Clostridium Difficile NELLI 10/21/24 In Process Toxin 18:47 Soft Diet DIET 10/22/24 Transmitted Dinner Date of Service: Oct 22, 2024 Billing Provider: JAGJIT NAYLOR MD Common Visit Codes: [id number] INP/OBS CARE(HIGH) JAGJIT NAYLOR MD Oct 22, 2024 14:28
--- NOTE | 2024-10-22 23:11 | DVHPN2 ---
Progress Note - Dictate Date Seen: Oct 22, 2024 Medical Necessity Reason Pt with a Central, PICC or Fol: No Subjective Patient was seen and evaluated in follow up. Patient is complaining of 8/10 abdominal pain with diarrhea. WBC stool: few WBCs seen. Stool sample for C Diff is negative. Stool culture has many growth: Gram Positive Danna vital signs Vital Sign Date Time Temp Pulse Resp B/P (MAP) Pulse Ox O2 Delivery O2 Flow Rate FiO2 10/22/24 12:07 96 18 136/65 10/22/24 08:23 98.5 99 98.5 10/21/24 20:00 Room Air* 0 21 Total Intake and Output 10/21/24 10/21/24 10/22/24 15:00 23:00 07:00 Intake Total 350 ml 500 ml 200 ml Output Total 100 ml 75 ml Balance 250 ml 500 ml 125 ml medications Current Medications Medications Dose Ordered Sig/Olga Route Start Time Stop Time Status Last Admin Dose Admin Sodium Chloride 10 ml Q8HR IV 10/20/24 14:00 10/22/24 05:22 10 ML Docusate Sodium 100 mg BIDPRN PRN PO 10/20/24 13:15 Acetaminophen 650 mg Q6HP PRN PO 10/20/24 13:15 Acetaminophen/ Hydrocodone Bitart 1 tab Q4HP PRN PO 10/20/24 13:15 10/22/24 09:46 1 TAB Hydromorphone HCl 0.5 mg Q4HP PRN IV 10/20/24 13:15 10/22/24 12:07 0.5 MG Ondansetron HCl 4 mg Q4HP PRN IV 10/20/24 13:15 10/22/24 10:04 4 MG Ceftriaxone Sodium 50 ml @ 100 mls/hr DAILY@09 IV 10/21/24 09:00 10/22/24 09:46 100 MLS/HR Metronidazole 100 ml @ 100 mls/hr Q8HR IV 10/20/24 22:00 10/22/24 05:23 100 MLS/HR Loperamide HCl 2 mg Q6HP PRN PO 10/21/24 11:00 10/21/24 14:09 2 MG Sodium Chloride 1,000 ml @ 100 mls/hr Q10H IV 10/21/24 11:00 10/22/24 07:00 100 MLS/HR Enoxaparin Sodium 80 mg Q12HR SC 10/21/24 22:00 10/22/24 09:47 80 MG objective GENERAL: Alert and oriented x 3. No acute distress. EYES: PERRL, EOMI. Anicteric. HENT: Moist mucous membranes. LUNGS: Clear to auscultation bilaterally. CARDIOVASCULAR: Irregular rate and rhythm. ABDOMEN: Soft, nontender and nondistended. EXTREMITIES: No edema. NEUROLOGIC: No focal neurological deficits. SKIN: Warm, dry. laboratory and microbiology Laboratory Tests 10/20/24 11:06 10/20/24 11:05 Test 10/20/24 11:05 Range/Units Serum Glucose 175 H 74-106 mg/dL Problem List Sepsis likely due to intra-abdominal infection. Gallbladder distended. Elevated troponin. Assessment/Plan Continued all current supportive medical care. Echocardiogram. Dilaudid and [place] for pain management. IV antibiotics as ordered. Additional plan as per the hospital course. Plan discussed with: Patient ALMA DELIA SONI MD Oct 22, 2024 12:23
[2024-10-23] VITALS (8 sets, daily range): BP systolic 120–157; BP diastolic 53–97; PULSE 76–84; RESP 14–20; TEMP 97.2–98.5; O2SAT 95–100
--- NOTE | 2024-10-23 13:08 | DVHPN2 ---
Subjective The patient seen and examined at bedside. Still complains of abdominal pain. No diarrhea. Intractable nausea and vomiting Reviewed: Care Plan, H&P, Labs, Medications, Previous Orders, Radiology Changes from previous H/P or p: No Changes Objective Vitals Vital Signs Date Time Temp Pulse Resp B/P (MAP) Pulse Ox O2 Delivery O2 Flow Rate FiO2 10/23/24 09:30 97.5 77 14 123/55 (77) 100 97.5 10/23/24 08:00 Room Air* 0 21 Intake/Output Intake and Output 10/23/24 07:00 Intake Total 950 ml Balance 950 ml Intake Oral 750 ml IV Total 200 ml # Voids 8 # Bowel Movements 11 General Appearance: Alert, Cooperative HEENT: Atraumatic, PERRLA, EOMI, Mucous membr. moist/pink Neck: Supple Lungs: Clear to auscultation, Normal air movement Cardiovascular: Regular rate, Normal S1, Normal S2, No murmurs, Gallops, Rubs Abdomen: Normal bowel sounds, Soft, No tenderness Neuro: Cranial nerves 3-12 NL Psych/Mental Status: Mental status NL Medications Current Medications Medications Dose Ordered Sig/Olga Route Start Time Stop Time Status Last Admin Dose Admin Sodium Chloride 10 ml Q8HR IV 10/20/24 14:00 10/23/24 05:40 10 ML Docusate Sodium 100 mg BIDPRN PRN PO 10/20/24 13:15 Acetaminophen 650 mg Q6HP PRN PO 10/20/24 13:15 Acetaminophen/ Hydrocodone Bitart 1 tab Q4HP PRN PO 10/20/24 13:15 10/22/24 20:47 1 TAB Hydromorphone HCl 0.5 mg Q4HP PRN IV 10/20/24 13:15 10/23/24 05:54 0.5 MG Ondansetron HCl 4 mg Q4HP PRN IV 10/20/24 13:15 10/23/24 05:50 4 MG Ceftriaxone Sodium 50 ml @ 100 mls/hr DAILY@09 IV 10/21/24 09:00 10/23/24 10:32 100 MLS/HR Metronidazole 100 ml @ 100 mls/hr Q8HR IV 10/20/24 22:00 10/23/24 05:40 100 MLS/HR Loperamide HCl 2 mg Q6HP PRN PO 10/21/24 11:00 10/21/24 14:09 2 MG Enoxaparin Sodium 80 mg Q12HR SC 10/21/24 22:00 10/23/24 10:33 80 MG Laboratory Results Laboratory Tests 10/20/24 11:05 10/20/24 11:06 Urinalysis Test 10/20/24 20:21 Urine Color Dark-yellow (Yellow) Urine Clarity Ex.turbid (Clear) Urine pH 5.0 (5.0-9.0) Urine Specific [place] 1.022 (1.001-1.035) Urine Protein 2+ (Negative) H Urine Ketones Trace (Negative) Urine Blood Trace /uL (Negative) H Urine Nitrite Negative (Negative) Urine Bilirubin Negative (Negative) Urine Urobilinogen Normal mg/dL (Negative) Urine Leukocyte Esterase 2+ /uL (Negative) Urine RBC 7 /hpf (0 - 4) Urine Microscopic WBC 18 /HPF (0-5) H Urine Squamous Epithelial Cells Few /hpf (<5) Urine Bacteria Few /hpf (None Seen) H Urine Mucus Few (None Seen) Urine Glucose Trace mg/dL (Normal) Microbiology Microbiology Date/Time Source Procedure Growth Status 10/21/24 11:49 Stool Clostridium difficile Toxin Assay - Final Complete 10/20/24 13:03 Blood Blood Culture - Preliminary Resulted Labs and/or images reviewed: Labs reviewed by me, Image(s) reviewed by me Assessment/Plan Assessment/Plan Diarrhea Gallbladder edema,US rule out cholecystitis Sepsis Intractable nausea and vomiting Continue current management with IV antibiotic Continue Imodium as needed. Continue IV fluid I will hold on her food due to patient can not tolerate food for now and have intractable nausea and vomiting. I will order a HIDA scan to rule out acalculous cholecystitis We will keep the patient NPO This medical document was created using an electronic medical record system with [employer] direct computerized dictation system. Although this document has been carefully reviewed, there may still be some phonetic and typographical errors. These areas are purely typographical due to imperfections of the software programs, and do not reflect any compromise in the patient's medical care. Plan discussed with: Patient, Daughter My Orders Orders - JAGJIT NAYLOR MD Procedure Category Date Status Time Soft Diet DIET 10/22/24 Transmitted Dinner Date of Service: Oct 23, 2024 Billing Provider: JAGJIT NAYLOR MD Common Visit Codes: [id number] INP/OBS CARE(HIGH) JAGJIT NAYLOR MD Oct 23, 2024 13:08
--- NOTE | 2024-10-23 17:27 | DVHINCON2 ---
Date of service: Oct 23, 2024 Reason for Consultation Abdominal pain nausea vomiting diarrhea assess pain. History of Present Illness This seen for all female presented with complaints of abdominal pain with nausea vomiting diarrhea she denied any unusual food ingestion feels she fever no bleeding. No Ulcer disease or pancreatitis Past Medical History Hypertension Past Surgical History None Family History: Family history: Diabetes mellitus G8 MOTHER Family History Remarkable Social History Denies smoking or drinking Allergies: Coded Allergies: NO KNOWN ALLERGIES (Unverified , 09/28/12) Home Meds No Active Prescriptions or Reported Meds Current Medications Current Medications Medications (Trade) Dose Ordered Sig/Olga Route PRN Reason Start Time Stop Time Status Last Admin Pantoprazole Sodium (Protonix Tablet) 40 mg DAILY PO 10/24/24 10:00 Sucralfate (Carafate Susp) 1 gm TID GT 10/23/24 20:00 Review of Systems Noncontributory Vital Signs Vital Signs Date Time Temp Pulse Resp B/P (MAP) Pulse Ox O2 Delivery O2 Flow Rate FiO2 10/23/24 17:10 98.2 83 16 139/97 (111) 97 98.2 10/23/24 08:00 Room Air* 0 21 Physical Exam Moderately built and nourished female in no acute distress vitals stable Clear lungs Cardiovascular unremarkable When soft mild tenderness in the epigastrium no rigidity no guarding no masses bowel sounds normal Extremities no edema no varicosities no clubbing Neuro grossly intact Labs white count was 18.4 hemoglobin is 14.8 bilirubin is 0.7 liver enzymes some normal lipase is 26 normal. Labs/Diagnostic Data Labs Test 10/21/24 11:09 10/20/24 21:00 10/20/24 20:21 10/20/24 13:03 Range/Units Stool for White Cells Few Troponin I High Sensitivity 117 *H </=34 ng/L Urine Color Dark-yellow Yellow Urine Clarity Ex.turbid Clear Urine pH 5.0 5.0-9.0 Urine Specific [place] 1.022 1.001-1.035 Urine Protein 2+ H Negative Urine Ketones Trace Negative Urine Blood Trace H Negative /uL Urine Nitrite Negative Negative Urine Bilirubin Negative Negative Urine Urobilinogen Normal Negative mg/dL Urine Leukocyte Esterase 2+ Negative /uL Urine RBC 7 0 - 4 /hpf Urine Microscopic WBC 18 H 0-5 /HPF Urine Squamous Epithelial Cells Few <5 /hpf Urine Bacteria Few H None Seen /hpf Urine Mucus Few None Seen Urine Glucose Trace Normal mg/dL Lactic Acid Level 1.5 0.4-2.0 mmol/L Test 10/20/24 11:06 10/20/24 11:05 Range/Units White Blood Count 18.4 H 4.4-10.8 10^3/uL Red Blood Count 4.54 4.0-5.20 10^6/uL Hemoglobin 14.8 12.2-16.2 g/dL Hematocrit 44.5 36.0-46.0 % Mean Corpuscular Volume 98.1 80.0-100.0 fL Mean Corpuscular Hemoglobin 32.6 H 28.0-32.0 pg Mean Corpuscular Hemoglobin Concent 33.2 32.0-36.0 g/dL Red Cell Distribution Width 15.1 H 11.8-14.3 % Platelet Count 240 140-450 10^3/uL Mean Platelet Volume 8.7 6.9-10.8 fL Neutrophils (%) (Auto) 37.0-80.0 % Lymphocytes (%) (Auto) 10.0-50.0 % Monocytes (%) (Auto) 0.0-12.0 % Basophils (%) (Auto) 0.0-2.0 % Neutrophils # (Auto) 1.6-8.6 10 ^3/uL Lymphocytes # (Auto) 0.4-5.4 10 ^3/uL Monocytes # (Auto) 0-1.3 10 ^3/uL Differential Total Cells Counted 100.0 100 Neutrophils % (Manual) 71 37.0-80.0 Band Neutrophils % (Manual) 14 Lymphocytes % (Manual) 10 10.0-50.0 Monocytes % (Manual) 5 0-12 Eosinophils % (Manual) 0 0-7 Basophils % (Manual) 0 0.0-2.0 Metamyelocytes % (manual) 0 Myelocytes % (Manual) 0 Promyelocytes % (Manual) 0 Blast Cells % (Manual) 0 Reactive Lymphocytes 0 Platelet Estimate Adequate Poikilocytosis (manual) Slight Anisocytosis (manual) Slight Stomatocytes Few Sodium Level 134 L 136-145 mmol/L Potassium Level 3.3 L 3.5-5.1 mmol/L Chloride Level 102 98-107 mmol/L Carbon Dioxide Level 18 L 20-31 mmol/L Anion Gap 14 5-15 Blood Urea Nitrogen 11 9-23 mg/dL Creatinine 1.19 H 0.550-1.02 mg/dL Glomerular Filtration Rate Calc 51 >90 mL/min BUN/Creatinine Ratio 9.2 L 10.0-20.0 Serum Glucose 175 H 74-106 mg/dL Calcium Level 9.3 8.7-10.4 mg/dL Total Bilirubin 0.7 0.2-1.0 mg/dL Aspartate Amino Transferase (AST) 32 13-40 U/L Alanine Aminotransferase (ALT) 26 7-40 U/L Alkaline Phosphatase 100 46-116 U/L Total Protein 8.2 5.7-8.2 g/dL Albumin 5.0 H 3.2-4.8 g/dL Lipase 26 12-53 U/L Microbiology Date/Time Source Procedure Growth Status 10/21/24 11:49 Stool Clostridium difficile Toxin Assay - Final Complete 10/20/24 13:03 Blood Blood Culture - Preliminary Resulted Assessment 64-year-old with complaints of abdominal pain nausea vomiting diarrhea white count is increased abdomen is soft mild tenderness in the lower abdomen but otherwise not no rigidity no guarding no masses clinical impression is possible gastroenteritis other GI pathology can not be excluded suggestions are Clinical impression is abdominal pain nausea vomiting diarrhea possible gastroenteritis to be considered Plan/Recommendation Stool studies stool C diff is negative,shigella neg Treat with symptomatically with the antibiotics follow the liver enzymes as well as white count Symptoms persist may need ID consult We will also properly need repeat CT with oral contrast if diarrhea and abdominal pain and other symptoms persist Thank you Dr. Mcdowell Plan discussed with: Patient MARCOS MCDOWELL MD Oct 23, 2024 17:27
--- NOTE | 2024-10-23 20:10 | DVHPN2 ---
Progress Note - Dictate Date Seen: Oct 23, 2024 Medical Necessity Reason Pt with a Central, PICC or Fol: No Subjective Patient was seen and evaluated in follow up. Patient remains with nausea, abdominal pain and vomiting. No further diarrhea. vital signs Vital Sign Date Time Temp Pulse Resp B/P (MAP) Pulse Ox O2 Delivery O2 Flow Rate FiO2 10/23/24 13:29 97.9 76 14 120/53 (75) 95 97.9 10/23/24 08:00 Room Air* 0 21 Total Intake and Output 10/22/24 10/22/24 10/23/24 15:00 23:00 07:00 Intake Total 550 ml 400 ml Balance 550 ml 400 ml medications Current Medications Medications Dose Ordered Sig/Olga Route Start Time Stop Time Status Last Admin Dose Admin Sodium Chloride 10 ml Q8HR IV 10/20/24 14:00 10/23/24 13:31 10 ML Docusate Sodium 100 mg BIDPRN PRN PO 10/20/24 13:15 Acetaminophen 650 mg Q6HP PRN PO 10/20/24 13:15 Acetaminophen/ Hydrocodone Bitart 1 tab Q4HP PRN PO 10/20/24 13:15 10/22/24 20:47 1 TAB Hydromorphone HCl 0.5 mg Q4HP PRN IV 10/20/24 13:15 10/23/24 05:54 0.5 MG Ondansetron HCl 4 mg Q4HP PRN IV 10/20/24 13:15 10/23/24 05:50 4 MG Ceftriaxone Sodium 50 ml @ 100 mls/hr DAILY@09 IV 10/21/24 09:00 10/23/24 10:32 100 MLS/HR Metronidazole 100 ml @ 100 mls/hr Q8HR IV 10/20/24 22:00 10/23/24 13:31 100 MLS/HR Loperamide HCl 2 mg Q6HP PRN PO 10/21/24 11:00 10/21/24 14:09 2 MG Enoxaparin Sodium 80 mg Q12HR SC 10/21/24 22:00 10/23/24 10:33 80 MG objective GENERAL: Alert and oriented x 3. No acute distress. EYES: PERRL, EOMI. Anicteric. HENT: Moist mucous membranes. LUNGS: Clear to auscultation bilaterally. CARDIOVASCULAR: Irregular rate and rhythm. ABDOMEN: Soft, nontender and nondistended. EXTREMITIES: No edema. NEUROLOGIC: No focal neurological deficits. SKIN: Warm, dry. laboratory and microbiology Laboratory Tests 10/20/24 11:06 10/20/24 11:05 Test 10/20/24 11:05 Range/Units Serum Glucose 175 H 74-106 mg/dL Problem List Sepsis likely due to intra-abdominal infection. Gallbladder distended. Elevated troponin. Assessment/Plan Continued all current supportive medical care. Echocardiogram. DVT prophylactics. Dilaudid for pain management. IV antibiotics as ordered. Additional plan as per the hospital course. Dietary Evaluation Review Comments: 1) Encourage optimal PO intake 2) Consider soluble fiber supplement 3) Advance to 60g [facility] cardiac diet when medically feasible 4) Refer to outpatient RD for weight management 5) Continue to monitor I&O, labs, and skin integrity Expected Outcomes/Goals: 1) appetite and labs to improve 2) diet to advance 3) GI symptoms to resolve 4) f/u in 3-5 days Plan discussed with: Patient ALMA DELIA SONI MD Oct 23, 2024 13:48
[2024-10-23] MEDS: SUCRALFATE 1 GM/10 ML ORAL SUSP GT SCH (22:33)
[2024-10-24 01:00] VITALS: BP 137/85; PULSE 84; RESP 20; TEMP 98.2; O2SAT 95
[2024-10-24 05:00] VITALS: BP 136/71; PULSE 82; RESP 18; TEMP 98.9; O2SAT 95
[2024-10-24] MEDS: SUCRALFATE 1 GM/10 ML ORAL SUSP GT SCH (05:02)
[2024-10-24 07:22] LABS: Hematocrit 38.8 % (36.0-46.0); Hemoglobin 13.3 g/dL (12.2-16.2); Mean Corpuscular Hemoglobin 33.0 pg (28.0-32.0); Mean Corpuscular Volume 96.2 fL (80.0-100.0); Nucleated Red Blood Cells % 0.0 %
[2024-10-24 07:42] LABS: Anion Gap 10 (5-15); Sodium 137 mmol/L (136-145)
[2024-10-24 07:44] LABS: Calcium 9.0 mg/dL (8.7-10.4); Carbon Dioxide 19 mmol/L (20-31); Chloride 108 mmol/L (98-107); Potassium 3.1 mmol/L (3.5-5.1)
[2024-10-24 07:49] LABS: BUN/Creatinine Ratio 12.1 (10.0-20.0); Glucose 80 mg/dL (74-106)
[2024-10-24 07:51] LABS: Blood Urea Nitrogen 8 mg/dL (9-23)
[2024-10-24 09:02] VITALS: BP 132/72; PULSE 77; RESP 16; TEMP 98; O2SAT 96
[2024-10-24] MEDS: PANTOPRAZOLE 40 MG TAB PO SCH (09:24)
--- NOTE | 2024-10-24 11:33 | DVHPN2 ---
Subjective The patient seen and examined at bedside. Still complains of abdominal pain. No diarrhea. Intractable nausea and vomiting Reviewed: Care Plan, H&P, Labs, Medications, Previous Orders, Radiology Changes from previous H/P or p: No Changes Objective Vitals Vital Signs Date Time Temp Pulse Resp B/P (MAP) Pulse Ox O2 Delivery O2 Flow Rate FiO2 10/24/24 09:02 98.0 77 16 132/72 (92) 96 98.0 10/24/24 08:00 Room Air* 0 21 Intake/Output Intake and Output 10/24/24 07:00 Intake Total 1950 ml Balance 1950 ml Intake Oral 1700 ml IV Total 250 ml # Voids 2 General Appearance: Alert, Cooperative HEENT: Atraumatic, PERRLA, EOMI, Mucous membr. moist/pink Neck: Supple Lungs: Clear to auscultation, Normal air movement Cardiovascular: Regular rate, Normal S1, Normal S2, No murmurs, Gallops, Rubs Abdomen: Normal bowel sounds, Soft, No tenderness Neuro: Cranial nerves 3-12 NL Psych/Mental Status: Mental status NL Medications Current Medications Medications Dose Ordered Sig/Olga Route Start Time Stop Time Status Last Admin Dose Admin Sodium Chloride 10 ml Q8HR IV 10/20/24 14:00 10/24/24 05:02 10 ML Docusate Sodium 100 mg BIDPRN PRN PO 10/20/24 13:15 Acetaminophen 650 mg Q6HP PRN PO 10/20/24 13:15 Acetaminophen/ Hydrocodone Bitart 1 tab Q4HP PRN PO 10/20/24 13:15 10/22/24 20:47 1 TAB Hydromorphone HCl 0.5 mg Q4HP PRN IV 10/20/24 13:15 10/23/24 18:06 0.5 MG Ondansetron HCl 4 mg Q4HP PRN IV 10/20/24 13:15 10/24/24 03:05 4 MG Ceftriaxone Sodium 50 ml @ 100 mls/hr DAILY@09 IV 10/21/24 09:00 10/24/24 09:36 100 MLS/HR Metronidazole 100 ml @ 100 mls/hr Q8HR IV 10/20/24 22:00 10/24/24 05:02 100 MLS/HR Loperamide HCl 2 mg Q6HP PRN PO 10/21/24 11:00 10/21/24 14:09 2 MG Enoxaparin Sodium 80 mg Q12HR SC 10/21/24 22:00 10/24/24 09:36 80 MG Pantoprazole Sodium 40 mg DAILY PO 10/24/24 10:00 Sucralfate 1 gm TID GT 10/24/24 06:00 10/24/24 05:02 1 GM Laboratory Results Laboratory Tests 10/24/24 06:35 Chemistry Test 10/24/24 06:35 Calcium Level 9.0 mg/dL (8.7-10.4) Urinalysis Test 10/20/24 20:21 Urine Color Dark-yellow (Yellow) Urine Clarity Ex.turbid (Clear) Urine pH 5.0 (5.0-9.0) Urine Specific [place] 1.022 (1.001-1.035) Urine Protein 2+ (Negative) H Urine Ketones Trace (Negative) Urine Blood Trace /uL (Negative) H Urine Nitrite Negative (Negative) Urine Bilirubin Negative (Negative) Urine Urobilinogen Normal mg/dL (Negative) Urine Leukocyte Esterase 2+ /uL (Negative) Urine RBC 7 /hpf (0 - 4) Urine Microscopic WBC 18 /HPF (0-5) H Urine Squamous Epithelial Cells Few /hpf (<5) Urine Bacteria Few /hpf (None Seen) H Urine Mucus Few (None Seen) Urine Glucose Trace mg/dL (Normal) Microbiology Microbiology Date/Time Source Procedure Growth Status 10/21/24 11:49 Stool Clostridium difficile Toxin Assay - Final Complete 10/20/24 13:03 Blood Blood Culture - Preliminary Salmonella species Resulted Labs and/or images reviewed: Labs reviewed by me Assessment/Plan Assessment/Plan Diarrhea Gallbladder edema,US rule out cholecystitis Sepsis Intractable nausea and vomiting Salmonella infection per stool culture Continue current management with IV antibiotic Rocephin Continue Imodium as needed. Continue IV fluid I will hold on her food due to patient can not tolerate food for now and have intractable nausea and vomiting. Waiting for HIDA scan to rule out acalculous cholecystitis Waiting for GI specialist to see the patient. We will keep the patient NPO This medical document was created using an electronic medical record system with [employer] direct computerized dictation system. Although this document has been carefully reviewed, there may still be some phonetic and typographical errors. These areas are purely typographical due to imperfections of the software programs, and do not reflect any compromise in the patient's medical care. Plan discussed with: Patient My Orders Orders - JAGJIT NAYLOR MD Procedure Category Date Status Time Pantoprazole Tablet PHA 10/24/24 In Process (Protonix Tablet) 10:00 Complete Blood Count LAB 10/25/24 Verified 05:00 Complete Blood Count LAB 10/26/24 Verified 05:00 Complete Blood Count LAB 10/27/24 Verified 05:00 Complete Blood Count LAB 10/28/24 Verified 05:00 Basic Metabolic Panel LAB 10/25/24 Verified 05:00 Basic Metabolic Panel LAB 10/26/24 Verified 05:00 Basic Metabolic Panel LAB 10/27/24 Verified 05:00 Basic Metabolic Panel LAB 10/28/24 Verified 05:00 Sucralfate Susp PHA 10/24/24 In Process (Carafate Susp) 06:00 Nm Hida Scan NM 10/24/24 Logged 21:50 Date of Service: Oct 24, 2024 Billing Provider: JAGJIT NAYLOR MD Common Visit Codes: [id number] INP/OBS CARE(HIGH) JAGJIT NAYLOR MD Oct 24, 2024 11:33
[2024-10-24] MEDS: POTASSIUM CHL 20 Meq TABLET PO ONE (12:31)
--- NOTE | 2024-10-24 14:01 | DVH ---
Procedure: RI NM HIDA SCAN Exam Date: 10/24/2024 10:30 AM Clinical History: acalculus cholecystitis. Comparison Study: Abdominal ultrasound from 10/20/2024 Nuclear Medicine Hepatobiliary Scan. Technique: Following the intravenous administration of 6.5 mCi of technetium 99m labeled Choletec multiple plana r abdominal planar images were obtained in anterior projection in 2 minute intervals for30 minutes . Right lateral images were obtained at 60 minutes after injection. Findings: The liver appears grossly normal in size. There is no abnormal persistence of the cardiac or blood po ol activity. There is prompt visualization of the gallbladder and excretion of activity into the smal l bowel. Impression: Patent cystic duct.
[2024-10-24 17:21] VITALS: BP 134/79; PULSE 70; RESP 16; TEMP 98.6; O2SAT 96
[2024-10-24 20:00] VITALS: PULSE 75; RESP 18; O2SAT 98
[2024-10-24 21:00] VITALS: BP 128/63; PULSE 75; RESP 18; TEMP 98; O2SAT 98
--- NOTE | 2024-10-24 22:00 | DVHPN2 ---
Progress Note - Dictate Date Seen: Oct 24, 2024 Medical Necessity Reason Pt with a Central, PICC or Fol: No Subjective Patient was seen and evaluated in follow up. No overnight events. Patient is complaining of abdominal pain with nausea. K 3.1, potassium is being replaced. vital signs Vital Sign Date Time Temp Pulse Resp B/P (MAP) Pulse Ox O2 Delivery O2 Flow Rate FiO2 10/24/24 21:00 98.0 75 18 128/63 (84) 98 98.0 10/24/24 08:00 Room Air* 0 21 Total Intake and Output 10/23/24 10/23/24 10/24/24 15:00 23:00 07:00 Intake Total 1850 ml 100 ml Balance 1850 ml 100 ml medications Current Medications Medications Dose Ordered Sig/Olga Route Start Time Stop Time Status Last Admin Dose Admin Sodium Chloride 10 ml Q8HR IV 10/20/24 14:00 10/24/24 21:31 10 ML Docusate Sodium 100 mg BIDPRN PRN PO 10/20/24 13:15 Acetaminophen 650 mg Q6HP PRN PO 10/20/24 13:15 Acetaminophen/ Hydrocodone Bitart 1 tab Q4HP PRN PO 10/20/24 13:15 10/24/24 21:31 1 TAB Hydromorphone HCl 0.5 mg Q4HP PRN IV 10/20/24 13:15 10/24/24 12:30 0.5 MG Ondansetron HCl 4 mg Q4HP PRN IV 10/20/24 13:15 10/24/24 12:29 4 MG Ceftriaxone Sodium 50 ml @ 100 mls/hr DAILY@09 IV 10/21/24 09:00 10/24/24 09:36 100 MLS/HR Metronidazole 100 ml @ 100 mls/hr Q8HR IV 10/20/24 22:00 10/24/24 21:31 100 MLS/HR Loperamide HCl 2 mg Q6HP PRN PO 10/21/24 11:00 10/21/24 14:09 2 MG Enoxaparin Sodium 80 mg Q12HR SC 10/21/24 22:00 10/24/24 21:31 80 MG Pantoprazole Sodium 40 mg DAILY PO 10/24/24 10:00 Sucralfate 1 gm TID GT 10/24/24 06:00 10/24/24 21:31 1 GM objective GENERAL: Alert and oriented x 3. No acute distress. EYES: PERRL, EOMI. Anicteric. HENT: Moist mucous membranes. LUNGS: Clear to auscultation bilaterally. CARDIOVASCULAR: Irregular rate and rhythm. ABDOMEN: Soft, nontender and nondistended. EXTREMITIES: No edema. NEUROLOGIC: No focal neurological deficits. SKIN: Warm, dry. laboratory and microbiology Laboratory Tests 10/24/24 06:35 Test 10/24/24 06:35 Range/Units Serum Glucose 80 74-106 mg/dL Problem List Sepsis likely due to intra-abdominal infection. Gallbladder distended. Elevated troponin. Assessment/Plan Continued all current supportive medical care. Echocardiogram. DVT prophylactics. Dilaudid for pain management. IV antibiotics as ordered. Additional plan as per the hospital course. Dietary Evaluation Review Comments: 1) Encourage optimal PO intake 2) Consider soluble fiber supplement 3) Advance to 60g [facility] cardiac diet when medically feasible 4) Refer to outpatient RD for weight management 5) Continue to monitor I&O, labs, and skin integrity Expected Outcomes/Goals: 1) appetite and labs to improve 2) diet to advance 3) GI symptoms to resolve 4) f/u in 3-5 days Plan discussed with: Patient ALMA DELIA SONI MD Oct 24, 2024 22:00
[2024-10-25] VITALS (7 sets, daily range): BP systolic 122–162; BP diastolic 66–87; PULSE 63–79; RESP 16–18; TEMP 97.7–98.2; O2SAT 95–98
[2024-10-25 07:51] LABS: Hematocrit 40.8 % (36.0-46.0); Hemoglobin 13.9 g/dL (12.2-16.2); Mean Corpuscular Hemoglobin 32.5 pg (28.0-32.0); Mean Corpuscular Volume 95.3 fL (80.0-100.0)
[2024-10-25 08:01] LABS: Calcium 9.1 mg/dL (8.7-10.4); Chloride 106 mmol/L (98-107); Sodium 140 mmol/L (136-145)
[2024-10-25 08:02] LABS: Anion Gap 9 (5-15); Carbon Dioxide 25 mmol/L (20-31)
[2024-10-25 08:04] LABS: Potassium 3.4 mmol/L (3.5-5.1)
[2024-10-25 08:07] LABS: BUN/Creatinine Ratio 8.7 (10.0-20.0); Glucose 84 mg/dL (74-106)
[2024-10-25 08:27] LABS: Blood Urea Nitrogen 6 mg/dL (9-23)
[2024-10-25 10:10] LABS: Total Cells Counted 100.0 (100)
--- NOTE | 2024-10-25 11:38 | DVHPN2 ---
Subjective The patient seen and examined at bedside. Still complains of abdominal pain. No diarrhea. Intractable nausea and vomiting Reviewed: Care Plan, H&P, Labs, Medications, Previous Orders, Radiology Changes from previous H/P or p: No Changes Objective Vitals Vital Signs Date Time Temp Pulse Resp B/P (MAP) Pulse Ox O2 Delivery O2 Flow Rate FiO2 10/25/24 09:00 97.9 63 16 139/78 (98) 96 97.9 10/25/24 08:04 Room Air* 0 21 Intake/Output Intake and Output 10/25/24 07:00 Intake Total 2390 ml Balance 2390 ml Intake Oral 2040 ml IV Total 350 ml # Voids 4 # Bowel Movements 1 General Appearance: Alert, Cooperative HEENT: Atraumatic, PERRLA, EOMI, Mucous membr. moist/pink Neck: Supple Lungs: Clear to auscultation, Normal air movement Cardiovascular: Regular rate, Normal S1, Normal S2, No murmurs, Gallops, Rubs Abdomen: Normal bowel sounds, Soft, No tenderness Neuro: Cranial nerves 3-12 NL Psych/Mental Status: Mental status NL Medications Current Medications Medications Dose Ordered Sig/Olga Route Start Time Stop Time Status Last Admin Dose Admin Sodium Chloride 10 ml Q8HR IV 10/20/24 14:00 10/25/24 05:40 10 ML Docusate Sodium 100 mg BIDPRN PRN PO 10/20/24 13:15 Acetaminophen 650 mg Q6HP PRN PO 10/20/24 13:15 Acetaminophen/ Hydrocodone Bitart 1 tab Q4HP PRN PO 10/20/24 13:15 10/25/24 11:36 1 TAB Hydromorphone HCl 0.5 mg Q4HP PRN IV 10/20/24 13:15 10/24/24 12:30 0.5 MG Ondansetron HCl 4 mg Q4HP PRN IV 10/20/24 13:15 10/24/24 12:29 4 MG Ceftriaxone Sodium 50 ml @ 100 mls/hr DAILY@09 IV 10/21/24 09:00 10/25/24 08:19 100 MLS/HR Metronidazole 100 ml @ 100 mls/hr Q8HR IV 10/20/24 22:00 10/25/24 05:37 100 MLS/HR Loperamide HCl 2 mg Q6HP PRN PO 10/21/24 11:00 10/21/24 14:09 2 MG Enoxaparin Sodium 80 mg Q12HR SC 10/21/24 22:00 10/25/24 08:20 80 MG Pantoprazole Sodium 40 mg DAILY PO 10/24/24 10:00 10/25/24 08:19 40 MG Sucralfate 1 gm TID GT 10/24/24 06:00 10/25/24 05:37 1 GM Laboratory Results Laboratory Tests 10/25/24 06:25 Chemistry Test 10/25/24 06:25 Calcium Level 9.1 mg/dL (8.7-10.4) Urinalysis Test 10/20/24 20:21 Urine Color Dark-yellow (Yellow) Urine Clarity Ex.turbid (Clear) Urine pH 5.0 (5.0-9.0) Urine Specific [place] 1.022 (1.001-1.035) Urine Protein 2+ (Negative) H Urine Ketones Trace (Negative) Urine Blood Trace /uL (Negative) H Urine Nitrite Negative (Negative) Urine Bilirubin Negative (Negative) Urine Urobilinogen Normal mg/dL (Negative) Urine Leukocyte Esterase 2+ /uL (Negative) Urine RBC 7 /hpf (0 - 4) Urine Microscopic WBC 18 /HPF (0-5) H Urine Squamous Epithelial Cells Few /hpf (<5) Urine Bacteria Few /hpf (None Seen) H Urine Mucus Few (None Seen) Urine Glucose Trace mg/dL (Normal) Microbiology Microbiology Date/Time Source Procedure Growth Status 10/21/24 11:49 Stool Clostridium difficile Toxin Assay - Final Complete 10/20/24 13:03 Blood Blood Culture - Preliminary Salmonella species Resulted Assessment/Plan Assessment/Plan Diarrhea Gallbladder edema,US rule out cholecystitis Sepsis Intractable nausea and vomiting Salmonella infection per stool culture Continue current management with IV antibiotic Rocephin Continue Imodium as needed. Continue IV fluid I will hold on her food due to patient can not tolerate food for now and have intractable nausea and vomiting. Waiting for HIDA scan to rule out acalculous cholecystitis Waiting for GI specialist to see the patient. We will keep the patient NPO This medical document was created using an electronic medical record system with [employer] direct computerized dictation system. Although this document has been carefully reviewed, there may still be some phonetic and typographical errors. These areas are purely typographical due to imperfections of the software programs, and do not reflect any compromise in the patient's medical care. Plan discussed with: Patient, Daughter Date of Service: Oct 25, 2024 Billing Provider: JAGJIT NAYLOR MD Common Visit Codes: [id number] INP/OBS CARE(HIGH) JAGJIT NAYLOR MD Oct 25, 2024 11:38
--- NOTE | 2024-10-25 19:14 | DVHPN2 ---
Progress Note - Dictate Date Seen: Oct 25, 2024 Medical Necessity Reason Pt with a Central, PICC or Fol: No Subjective Patient had some abdominal pain in the both upper quadrants especially in the right side and nausea but feeling much better now HIDA scan done which was negative vital signs Vital Sign Date Time Temp Pulse Resp B/P (MAP) Pulse Ox O2 Delivery O2 Flow Rate FiO2 10/25/24 17:00 97.8 74 16 153/87 (109) 95 97.8 10/25/24 08:04 Room Air* 0 21 Total Intake and Output 10/24/24 10/24/24 10/25/24 15:00 23:00 07:00 Intake Total 390 ml 1400 ml 600 ml Balance 390 ml 1400 ml 600 ml medications Current Medications Medications Dose Ordered Sig/Olga Route Start Time Stop Time Status Last Admin Dose Admin Sodium Chloride 10 ml Q8HR IV 10/20/24 14:00 10/25/24 15:01 10 ML Docusate Sodium 100 mg BIDPRN PRN PO 10/20/24 13:15 Acetaminophen 650 mg Q6HP PRN PO 10/20/24 13:15 Acetaminophen/ Hydrocodone Bitart 1 tab Q4HP PRN PO 10/20/24 13:15 10/25/24 11:36 1 TAB Hydromorphone HCl 0.5 mg Q4HP PRN IV 10/20/24 13:15 10/24/24 12:30 0.5 MG Ondansetron HCl 4 mg Q4HP PRN IV 10/20/24 13:15 10/24/24 12:29 4 MG Ceftriaxone Sodium 50 ml @ 100 mls/hr DAILY@09 IV 10/21/24 09:00 10/25/24 08:19 100 MLS/HR Metronidazole 100 ml @ 100 mls/hr Q8HR IV 10/20/24 22:00 10/25/24 15:00 100 MLS/HR Loperamide HCl 2 mg Q6HP PRN PO 10/21/24 11:00 10/21/24 14:09 2 MG Enoxaparin Sodium 80 mg Q12HR SC 10/21/24 22:00 10/25/24 08:20 80 MG Pantoprazole Sodium 40 mg DAILY PO 10/24/24 10:00 10/25/24 08:19 40 MG Sucralfate 1 gm TID GT 10/24/24 06:00 10/25/24 15:01 1 GM objective Soft minimal tenderness in the epigastrium and right upper quadrant no rigidity no guarding bowel sounds normal No no vomiting at all and tolerated lines okay able to feed solid food laboratory and microbiology Laboratory Tests 10/25/24 06:25 Test 10/25/24 06:25 Range/Units Serum Glucose 84 74-106 mg/dL Assessment/Plan Patient is doing fine patient is on antibiotics and getting better Ultrasound as well as the HIDA scan and negative for any biliary disease Assessment Gastritis possibly with a some gastroenteritis Patient is feeling better we will continue with the antibiotics and increase the diet and see If better can not be sent persist may need EGD evaluation etc. as an outpatient Thank you Dr. Mcdowell Dietary Evaluation Review Comments: 1) Encourage optimal PO intake 2) Consider soluble fiber supplement 3) Advance to 60g [facility] cardiac diet when medically feasible 4) Refer to outpatient RD for weight management 5) Continue to monitor I&O, labs, and skin integrity Expected Outcomes/Goals: 1) appetite and labs to improve 2) diet to advance 3) GI symptoms to resolve 4) f/u in 3-5 days Plan discussed with: Patient MARCOS MCDOWELL MD Oct 25, 2024 19:14
--- NOTE | 2024-10-25 21:32 | DVHSR ---
APPROVED REPORT EXAM: Two-dimensional and M-mode echocardiogram with Doppler and color Doppler. Blood Pressure: 140/56 mmHg INDICATION evevated trops rule out acs RISK FACTORS Hypertension: 20Years Obesity: Height: 4'11, Weight: 165 DIMENSIONS LVDd3.8 (3.8-5.7cm)LA (2D)4.5 (1.9-4.0cm)Aortic Root2.8 (2.0-3.7cm) LVDs2.1 (2.5-4.0cm)LA (MM) (1.9-4.0cm)Aortic Cusp Exc1.5 (1.5-2.0cm) EF (%) 76.1 (55-70%)Rt. Atrium2.6 (1.9-4.0cm)Asc. Aorta cm IVSd1.4 (0.7-1.1cm)RV (D) (1.8-2.4cm) PWd0.9 (0.7-1.1cm) Mitral Valve MitralMitral Stenosis E wave0.45m/sMV Mean GR.mmHg A wave0.93m/sMV Peak GR.mmHg E/A ratio0.52D MVAcm2 DECEL [id number] 1/2 Timems Aortic Valve Aortic ValveAortic Stenosis V1m/[place] Mean GR.7mmHg V22.11m/[place] Peak GR.33mmHg LVOT Diameter1.7 (1.8-2.4cm)Doppler AVAcm2 2D AVA3.16cm2 Pulmonic Valve V21.28m/s Other Information Quality : Technically LimitedRhythm : Technically limited study due to pt shallow breathing, c/o abdominal pain & pt unable to hold valsal va. patient position. Conclusion NORMAL LV EF IS 75% AND IS HYPERDYNAMIC LV NORMAL VALVES NORMAL RV FUNCTION NO EFFUSION
--- NOTE | 2024-10-25 22:55 | DVHPN2 ---
Progress Note - Dictate Date Seen: Oct 25, 2024 Medical Necessity Reason Pt with a Central, PICC or Fol: No Subjective Patient was seen and evaluated in follow up. Patient is complaining of bilateral upper quadrant abdominal pain with nausea. Patient denies any vomiting. NM HIDA was negative. K 3.4, potassium was replaced. CBC is unremarkable. Echocardiogram shows an EF of 75%. vital signs Vital Sign Date Time Temp Pulse Resp B/P (MAP) Pulse Ox O2 Delivery O2 Flow Rate FiO2 10/25/24 21:00 97.8 71 18 162/83 (109) 98 97.8 10/25/24 20:26 Room Air* 0 21 Total Intake and Output 10/24/24 10/24/24 10/25/24 15:00 23:00 07:00 Intake Total 390 ml 1400 ml 600 ml Balance 390 ml 1400 ml 600 ml medications Current Medications Medications Dose Ordered Sig/Olga Route Start Time Stop Time Status Last Admin Dose Admin Sodium Chloride 10 ml Q8HR IV 10/20/24 14:00 10/25/24 21:26 10 ML Docusate Sodium 100 mg BIDPRN PRN PO 10/20/24 13:15 Acetaminophen 650 mg Q6HP PRN PO 10/20/24 13:15 Acetaminophen/ Hydrocodone Bitart 1 tab Q4HP PRN PO 10/20/24 13:15 10/25/24 11:36 1 TAB Hydromorphone HCl 0.5 mg Q4HP PRN IV 10/20/24 13:15 10/24/24 12:30 0.5 MG Ondansetron HCl 4 mg Q4HP PRN IV 10/20/24 13:15 10/24/24 12:29 4 MG Ceftriaxone Sodium 50 ml @ 100 mls/hr DAILY@09 IV 10/21/24 09:00 10/25/24 08:19 100 MLS/HR Metronidazole 100 ml @ 100 mls/hr Q8HR IV 10/20/24 22:00 10/25/24 21:26 100 MLS/HR Loperamide HCl 2 mg Q6HP PRN PO 10/21/24 11:00 10/21/24 14:09 2 MG Enoxaparin Sodium 80 mg Q12HR SC 10/21/24 22:00 10/25/24 21:27 80 MG Pantoprazole Sodium 40 mg DAILY PO 10/24/24 10:00 10/25/24 08:19 40 MG Sucralfate 1 gm TID GT 10/24/24 06:00 10/25/24 21:26 1 GM objective GENERAL: Alert and oriented x 3. No acute distress. EYES: PERRL, EOMI. Anicteric. HENT: Moist mucous membranes. LUNGS: Clear to auscultation bilaterally. CARDIOVASCULAR: Irregular rate and rhythm. ABDOMEN: Soft, nontender and nondistended. EXTREMITIES: No edema. NEUROLOGIC: No focal neurological deficits. SKIN: Warm, dry. laboratory and microbiology Laboratory Tests 10/25/24 06:25 Test 10/25/24 06:25 Range/Units Serum Glucose 84 74-106 mg/dL Problem List Sepsis likely due to intra-abdominal infection. Gallbladder distended. Elevated troponin. Assessment/Plan Continued all current supportive medical care. Dilaudid and [place] for pain management. IV antibiotics as ordered. DVT and GI prophylactics. Carafate. Additional plan as per the hospital course. Dietary Evaluation Review Comments: 1) Encourage optimal PO intake 2) Consider soluble fiber supplement 3) Advance to 60g [facility] cardiac diet when medically feasible 4) Refer to outpatient RD for weight management 5) Continue to monitor I&O, labs, and skin integrity Expected Outcomes/Goals: 1) appetite and labs to improve 2) diet to advance 3) GI symptoms to resolve 4) f/u in 3-5 days Plan discussed with: Patient ALMA DELIA SONI MD Oct 25, 2024 22:55
[2024-10-26 01:00] VITALS: BP 156/74; PULSE 71; RESP 18; TEMP 97.7; O2SAT 93
[2024-10-26 05:00] VITALS: BP 145/80; PULSE 77; RESP 18; TEMP 97.9; O2SAT 96
[2024-10-26 07:05] LABS: Hematocrit 37.5 % (36.0-46.0); Hemoglobin 13.3 g/dL (12.2-16.2); Mean Corpuscular Hemoglobin 33.3 pg (28.0-32.0); Mean Corpuscular Volume 94.2 fL (80.0-100.0); Nucleated Red Blood Cells % 0.1 %
[2024-10-26 07:08] LABS: Anion Gap 11 (5-15); Carbon Dioxide 25 mmol/L (20-31); Chloride 106 mmol/L (98-107); Sodium 142 mmol/L (136-145)
[2024-10-26 07:11] LABS: Potassium 3.3 mmol/L (3.5-5.1)
[2024-10-26 07:14] LABS: BUN/Creatinine Ratio 8.8 (10.0-20.0); Glucose 80 mg/dL (74-106)
[2024-10-26 07:16] LABS: Blood Urea Nitrogen 6 mg/dL (9-23)
[2024-10-26 07:18] LABS: Calcium 8.7 mg/dL (8.7-10.4)
[2024-10-26 09:00] VITALS: BP 145/79; PULSE 69; RESP 18; TEMP 98.1; O2SAT 96
--- NOTE | 2024-10-26 11:55 | DVHPN2 ---
Subjective The patient seen and examined at bedside. Still complains of abdominal pain. Still diarrhea. Intractable nausea and vomiting Reviewed: Care Plan, H&P, Labs, Medications, Previous Orders, Radiology Changes from previous H/P or p: No Changes Objective Vitals Vital Signs Date Time Temp Pulse Resp B/P (MAP) Pulse Ox O2 Delivery O2 Flow Rate FiO2 10/26/24 09:00 98.1 69 18 145/79 (101) 96 98.1 10/26/24 08:05 Room Air* 0 21 Intake/Output Intake and Output 10/26/24 07:00 Intake Total 1700 ml Balance 1700 ml Intake Oral 1250 ml IV Total 450 ml # Voids 5 # Bowel Movements 2 General Appearance: Alert, Cooperative HEENT: Atraumatic, PERRLA, EOMI, Mucous membr. moist/pink Neck: Supple Lungs: Clear to auscultation, Normal air movement Cardiovascular: Regular rate, Normal S1, Normal S2, No murmurs, Gallops, Rubs Abdomen: Normal bowel sounds, Soft, No tenderness Neuro: Cranial nerves 3-12 NL Psych/Mental Status: Mental status NL Medications Current Medications Medications Dose Ordered Sig/Olga Route Start Time Stop Time Status Last Admin Dose Admin Sodium Chloride 10 ml Q8HR IV 10/20/24 14:00 10/26/24 05:24 10 ML Docusate Sodium 100 mg BIDPRN PRN PO 10/20/24 13:15 Acetaminophen 650 mg Q6HP PRN PO 10/20/24 13:15 Acetaminophen/ Hydrocodone Bitart 1 tab Q4HP PRN PO 10/20/24 13:15 10/25/24 11:36 1 TAB Hydromorphone HCl 0.5 mg Q4HP PRN IV 10/20/24 13:15 10/24/24 12:30 0.5 MG Ondansetron HCl 4 mg Q4HP PRN IV 10/20/24 13:15 10/24/24 12:29 4 MG Ceftriaxone Sodium 50 ml @ 100 mls/hr DAILY@09 IV 10/21/24 09:00 10/26/24 08:20 100 MLS/HR Metronidazole 100 ml @ 100 mls/hr Q8HR IV 10/20/24 22:00 10/26/24 05:24 100 MLS/HR Loperamide HCl 2 mg Q6HP PRN PO 10/21/24 11:00 10/21/24 14:09 2 MG Enoxaparin Sodium 80 mg Q12HR SC 10/21/24 22:00 10/26/24 08:20 80 MG Pantoprazole Sodium 40 mg DAILY PO 10/24/24 10:00 10/26/24 08:20 40 MG Sucralfate 1 gm TID PO 10/26/24 14:00 Laboratory Results Laboratory Tests 10/26/24 06:18 Chemistry Test 10/26/24 06:18 Calcium Level 8.7 mg/dL (8.7-10.4) Urinalysis Test 10/20/24 20:21 Urine Color Dark-yellow (Yellow) Urine Clarity Ex.turbid (Clear) Urine pH 5.0 (5.0-9.0) Urine Specific [place] 1.022 (1.001-1.035) Urine Protein 2+ (Negative) H Urine Ketones Trace (Negative) Urine Blood Trace /uL (Negative) H Urine Nitrite Negative (Negative) Urine Bilirubin Negative (Negative) Urine Urobilinogen Normal mg/dL (Negative) Urine Leukocyte Esterase 2+ /uL (Negative) Urine RBC 7 /hpf (0 - 4) Urine Microscopic WBC 18 /HPF (0-5) H Urine Squamous Epithelial Cells Few /hpf (<5) Urine Bacteria Few /hpf (None Seen) H Urine Mucus Few (None Seen) Urine Glucose Trace mg/dL (Normal) Microbiology Microbiology Date/Time Source Procedure Growth Status 10/21/24 11:49 Stool Clostridium difficile Toxin Assay - Final Complete 10/20/24 13:03 Blood Blood Culture - Preliminary Salmonella species Resulted Labs and/or images reviewed: Labs reviewed by me Assessment/Plan Assessment/Plan Diarrhea Gallbladder edema,US rule out cholecystitis Sepsis Intractable nausea and vomiting Salmonella infection per stool culture Hypokalemia Continue current management with IV antibiotic Rocephin Continue Imodium as needed. Continue IV fluid Advance diet as tolerate. Waiting for HIDA scan to rule out acalculous cholecystitis Waiting for GI specialist to see the patient. Replace K with Kdur 40mEq x 1 This medical document was created using an electronic medical record system with [employer] direct computerized dictation system. Although this document has been carefully reviewed, there may still be some phonetic and typographical errors. These areas are purely typographical due to imperfections of the software programs, and do not reflect any compromise in the patient's medical care. Plan discussed with: Patient My Orders Orders - JAGJIT NAYLOR MD Procedure Category Date Status Time Sucralfate Susp PHA 10/26/24 In Process (Carafate Susp) 14:00 Date of Service: Oct 26, 2024 Billing Provider: JAGJIT NAYLOR MD Common Visit Codes: 35557-[id number] INP/OBS CARE(HIGH) JAGJIT NAYLOR MD Oct 26, 2024 11:55
[2024-10-26 13:00] VITALS: BP 144/71; PULSE 74; RESP 18; TEMP 97.8; O2SAT 96
[2024-10-26] MEDS: SUCRALFATE 1 GM/10 ML ORAL SUSP PO SCH (13:58)
[2024-10-26] MEDS: POTASSIUM CHL 20 Meq TABLET PO ONE (13:58)
[2024-10-26] MEDS: ACETAMINOPHEN 325 MG TAB PO PRN (16:54)
[2024-10-26 17:06] VITALS: BP 137/74; PULSE 88; RESP 18; TEMP 98.7; O2SAT 96
[2024-10-26 21:00] VITALS: BP 139/85; PULSE 79; RESP 18; TEMP 97.9; O2SAT 98
[2024-10-27 01:00] VITALS: BP 144/77; PULSE 65; RESP 18; TEMP 98; O2SAT 18; O2SAT 98
--- NOTE | 2024-10-27 01:38 | DVHPN2 ---
Progress Note - Dictate Date Seen: Oct 26, 2024 Medical Necessity Reason Pt with a Central, PICC or Fol: No Subjective Patient was seen and evaluated in follow up. Patient remains with bilateral upper quadrant abdominal pain with nausea and diarrhea . K 3.3. vital signs Vital Sign Date Time Temp Pulse Resp B/P (MAP) Pulse Ox O2 Delivery O2 Flow Rate FiO2 10/26/24 09:00 98.1 69 18 145/79 (101) 96 98.1 10/26/24 08:05 Room Air* 0 21 Total Intake and Output 10/25/24 10/25/24 10/26/24 15:00 23:00 07:00 Intake Total 150 ml 1000 ml 550 ml Balance 150 ml 1000 ml 550 ml medications Current Medications Medications Dose Ordered Sig/Olga Route Start Time Stop Time Status Last Admin Dose Admin Sodium Chloride 10 ml Q8HR IV 10/20/24 14:00 10/26/24 13:58 10 ML Docusate Sodium 100 mg BIDPRN PRN PO 10/20/24 13:15 Acetaminophen 650 mg Q6HP PRN PO 10/20/24 13:15 Acetaminophen/ Hydrocodone Bitart 1 tab Q4HP PRN PO 10/20/24 13:15 10/25/24 11:36 1 TAB Hydromorphone HCl 0.5 mg Q4HP PRN IV 10/20/24 13:15 10/24/24 12:30 0.5 MG Ondansetron HCl 4 mg Q4HP PRN IV 10/20/24 13:15 10/24/24 12:29 4 MG Ceftriaxone Sodium 50 ml @ 100 mls/hr DAILY@09 IV 10/21/24 09:00 10/26/24 08:20 100 MLS/HR Metronidazole 100 ml @ 100 mls/hr Q8HR IV 10/20/24 22:00 10/26/24 13:58 100 MLS/HR Loperamide HCl 2 mg Q6HP PRN PO 10/21/24 11:00 10/26/24 13:18 2 MG Enoxaparin Sodium 80 mg Q12HR SC 10/21/24 22:00 10/26/24 08:20 80 MG Pantoprazole Sodium 40 mg DAILY PO 10/24/24 10:00 10/26/24 08:20 40 MG Sucralfate 1 gm TID PO 10/26/24 14:00 10/26/24 13:58 1 GM objective GENERAL: Alert and oriented x 3. No acute distress. EYES: PERRL, EOMI. Anicteric. HENT: Moist mucous membranes. LUNGS: Clear to auscultation bilaterally. CARDIOVASCULAR: Irregular rate and rhythm. ABDOMEN: Soft, nontender and nondistended. EXTREMITIES: No edema. NEUROLOGIC: No focal neurological deficits. SKIN: Warm, dry. laboratory and microbiology Laboratory Tests 10/26/24 06:18 Test 10/26/24 06:18 Range/Units Serum Glucose 80 74-106 mg/dL Problem List Sepsis likely due to intra-abdominal infection. Gallbladder distended. Elevated troponin. Assessment/Plan Continued all current supportive medical care. Dilaudid and Tylenol for pain management. IV antibiotics as ordered. DVT and GI prophylactics. Carafate. Additional plan as per the hospital course. Dietary Evaluation Review Comments: 1) Encourage optimal PO intake 2) Consider soluble fiber supplement 3) Advance to 60g [facility] cardiac diet when medically feasible 4) Refer to outpatient RD for weight management 5) Continue to monitor I&O, labs, and skin integrity Expected Outcomes/Goals: 1) appetite and labs to improve 2) diet to advance 3) GI symptoms to resolve 4) f/u in 3-5 days Plan discussed with: Patient ALMA DELIA SONI MD Oct 26, 2024 14:43
[2024-10-27 05:00] VITALS: BP 138/72; PULSE 68; RESP 18; TEMP 98.4; O2SAT 96
[2024-10-27 06:39] LABS: Hematocrit 37.7 % (36.0-46.0); Hemoglobin 13.1 g/dL (12.2-16.2); Mean Corpuscular Hemoglobin 33.0 pg (28.0-32.0); Mean Corpuscular Volume 94.8 fL (80.0-100.0)
[2024-10-27 07:02] LABS: Anion Gap 9 (5-15); Carbon Dioxide 28 mmol/L (20-31); Chloride 106 mmol/L (98-107); Potassium 3.6 mmol/L (3.5-5.1); Sodium 143 mmol/L (136-145)
[2024-10-27 07:04] LABS: Calcium 8.7 mg/dL (8.7-10.4)
[2024-10-27 07:08] LABS: Glucose 105 mg/dL (74-106)
[2024-10-27 07:09] LABS: BUN/Creatinine Ratio 7.0 (10.0-20.0); Blood Urea Nitrogen < 5 mg/dL (9-23)
[2024-10-27 08:02] LABS: Total Cells Counted 100.0 (100)
[2024-10-27 09:08] VITALS: BP 164/78; PULSE 80; RESP 18; TEMP 97.8; O2SAT 98
--- NOTE | 2024-10-27 12:30 | DVHPN2 ---
Subjective The patient seen and examined at bedside. Still complains of abdominal pain. Still diarrhea. Intractable nausea and vomiting Reviewed: Care Plan, H&P, Labs, Medications, Previous Orders, Radiology Objective Vitals Vital Signs Date Time Temp Pulse Resp B/P (MAP) Pulse Ox O2 Delivery O2 Flow Rate FiO2 10/27/24 09:08 97.8 80 18 164/78 (106) 98 97.8 10/27/24 08:00 Room Air* 0 21 Intake/Output Intake and Output 10/27/24 07:00 Intake Total 1750 ml Balance 1750 ml Intake Oral 1600 ml IV Total 150 ml # Voids 8 # Bowel Movements 5 General Appearance: Alert, Cooperative HEENT: Atraumatic, PERRLA, EOMI, Mucous membr. moist/pink Neck: Supple Lungs: Clear to auscultation, Normal air movement Cardiovascular: Regular rate, Normal S1, Normal S2, No murmurs, Gallops, Rubs Abdomen: Normal bowel sounds, Soft, No tenderness Neuro: Cranial nerves 3-12 NL Psych/Mental Status: Mental status NL Medications Current Medications Medications Dose Ordered Sig/Olga Route Start Time Stop Time Status Last Admin Dose Admin Sodium Chloride 10 ml Q8HR IV 10/20/24 14:00 10/27/24 05:35 10 ML Docusate Sodium 100 mg BIDPRN PRN PO 10/20/24 13:15 Acetaminophen 650 mg Q6HP PRN PO 10/20/24 13:15 10/26/24 16:54 650 MG Acetaminophen/ Hydrocodone Bitart 1 tab Q4HP PRN PO 10/20/24 13:15 10/25/24 11:36 1 TAB Hydromorphone HCl 0.5 mg Q4HP PRN IV 10/20/24 13:15 10/24/24 12:30 0.5 MG Ondansetron HCl 4 mg Q4HP PRN IV 10/20/24 13:15 10/24/24 12:29 4 MG Ceftriaxone Sodium 50 ml @ 100 mls/hr DAILY@09 IV 10/21/24 09:00 10/27/24 10:00 100 MLS/HR Metronidazole 100 ml @ 100 mls/hr Q8HR IV 10/20/24 22:00 10/27/24 05:35 100 MLS/HR Loperamide HCl 2 mg Q6HP PRN PO 10/21/24 11:00 10/26/24 13:18 2 MG Enoxaparin Sodium 80 mg Q12HR SC 10/21/24 22:00 10/27/24 10:00 80 MG Pantoprazole Sodium 40 mg DAILY PO 10/24/24 10:00 10/27/24 10:00 40 MG Sucralfate 1 gm TID PO 10/26/24 14:00 10/27/24 05:35 1 GM Laboratory Results Laboratory Tests 10/27/24 06:10 Chemistry Test 10/27/24 06:10 Calcium Level 8.7 mg/dL (8.7-10.4) Urinalysis Test 10/20/24 20:21 Urine Color Dark-yellow (Yellow) Urine Clarity Ex.turbid (Clear) Urine pH 5.0 (5.0-9.0) Urine Specific [place] 1.022 (1.001-1.035) Urine Protein 2+ (Negative) H Urine Ketones Trace (Negative) Urine Blood Trace /uL (Negative) H Urine Nitrite Negative (Negative) Urine Bilirubin Negative (Negative) Urine Urobilinogen Normal mg/dL (Negative) Urine Leukocyte Esterase 2+ /uL (Negative) Urine RBC 7 /hpf (0 - 4) Urine Microscopic WBC 18 /HPF (0-5) H Urine Squamous Epithelial Cells Few /hpf (<5) Urine Bacteria Few /hpf (None Seen) H Urine Mucus Few (None Seen) Urine Glucose Trace mg/dL (Normal) Microbiology Microbiology Date/Time Source Procedure Growth Status 10/21/24 11:49 Stool Clostridium difficile Toxin Assay - Final Complete 10/20/24 13:03 Blood Blood Culture - Preliminary Salmonella species Resulted Assessment/Plan Assessment/Plan Diarrhea Gallbladder edema,US rule out cholecystitis Sepsis Intractable nausea and vomiting Salmonella infection per stool culture Hypokalemia Continue current management with IV antibiotic Rocephin Continue Imodium as needed. Continue IV fluid Advance diet as tolerate. Waiting for HIDA scan to rule out acalculous cholecystitis Waiting for GI specialist to see the patient. Replace K with Kdur 40mEq x 1 This medical document was created using an electronic medical record system with [employer] computerized dictation system. Although this document has been carefully reviewed, there may still be some phonetic and typographical errors. These areas are purely typographical due to imperfections of the software programs, and do not reflect any compromise in the patient's medical care. JAGJIT NAYLOR MD Oct 27, 2024 12:30
[2024-10-27 13:00] VITALS: BP 141/82; PULSE 70; RESP 16; TEMP 98.2; O2SAT 96
[2024-10-27] MEDS ORDERED: AMOX500C2 PO (13:28)
--- NOTE | 2024-10-27 13:29 | DVHDS2 ---
Discharge Summary Date of Admission Oct 20, 2024 at 13:15 Date of Discharge: Oct 27, 2024 Admitting Diagnosis Diarrhea Gallbladder edema,need to rule out cholecystitis Sepsis Intractable nausea and vomiting Salmonella infection per stool culture Hypokalemia Labs/Diagnostic Data: Laboratory Results Test 10/27/24 06:10 10/26/24 06:18 10/21/24 11:09 10/20/24 21:00 White Blood Count 4.8 10^3/uL (4.4-10.8) Red Blood Count 3.98 10^6/uL (4.0-5.20) Hemoglobin 13.1 g/dL (12.2-16.2) Hematocrit 37.7 % (36.0-46.0) Mean Corpuscular Volume 94.8 fL (80.0-100.0) Mean Corpuscular Hemoglobin 33.0 pg (28.0-32.0) Mean Corpuscular Hemoglobin Concent 34.9 g/dL (32.0-36.0) Red Cell Distribution Width 14.2 % (11.8-14.3) Platelet Count 274 10^3/uL (140-450) Mean Platelet Volume 8.0 fL (6.9-10.8) Neutrophils (%) (Auto) % (37.0-80.0) Lymphocytes (%) (Auto) % (10.0-50.0) Monocytes (%) (Auto) % (0.0-12.0) Basophils (%) (Auto) % (0.0-2.0) Neutrophils # (Auto) 10 ^3/uL (1.6-8.6) Lymphocytes # (Auto) 10 ^3/uL (0.4-5.4) Monocytes # (Auto) 10 ^3/uL (0-1.3) Differential Total Cells Counted 100.0 (100) Neutrophils % (Manual) 17 (37.0-80.0) Band Neutrophils % (Manual) 4 Lymphocytes % (Manual) 66 (10.0-50.0) Monocytes % (Manual) 12 (0-12) Eosinophils % (Manual) 1 (0-7) Basophils % (Manual) 0 (0.0-2.0) Metamyelocytes % (manual) 0 Myelocytes % (Manual) 0 Promyelocytes % (Manual) 0 Blast Cells % (Manual) 0 Reactive Lymphocytes 0 Platelet Estimate Adequate Sodium Level 143 mmol/L (136-145) Potassium Level 3.6 mmol/L (3.5-5.1) Chloride Level 106 mmol/L (98-107) Carbon Dioxide Level 28 mmol/L (20-31) Anion Gap 9 (5-15) Blood Urea Nitrogen < 5 mg/dL (9-23) Creatinine 0.71 mg/dL (0.550-1.02) Glomerular Filtration Rate Calc 95 mL/min (>90) BUN/Creatinine Ratio 7.0 (10.0-20.0) Serum Glucose 105 mg/dL (74-106) Calcium Level 8.7 mg/dL (8.7-10.4) Eosinophils (%) (Auto) 0.7 % (0.0-7.0) Eosinophils # (Auto) 0 10 ^3/uL (0-0.8) Basophils # (Auto) 0 10 ^3/uL (0-0.2) Nucleated Red Blood Cells 0.1 % Stool for White Cells Few Troponin I High Sensitivity 117 ng/L (</=34) Test 10/20/24 20:21 10/20/24 13:03 10/20/24 11:06 10/20/24 11:05 Urine Color Dark-yellow (Yellow) Urine Clarity Ex.turbid (Clear) Urine pH 5.0 (5.0-9.0) Urine Specific [place] 1.022 (1.001-1.035) Urine Protein 2+ (Negative) Urine Ketones Trace (Negative) Urine Blood Trace /uL (Negative) Urine Nitrite Negative (Negative) Urine Bilirubin Negative (Negative) Urine Urobilinogen Normal mg/dL (Negative) Urine Leukocyte Esterase 2+ /uL (Negative) Urine RBC 7 /hpf (0 - 4) Urine Microscopic WBC 18 /HPF (0-5) Urine Squamous Epithelial Cells Few /hpf (<5) Urine Bacteria Few /hpf (None Seen) Urine Mucus Few (None Seen) Urine Glucose Trace mg/dL (Normal) Lactic Acid Level 1.5 mmol/L (0.4-2.0) Poikilocytosis (manual) Slight Anisocytosis (manual) Slight Stomatocytes Few Total Bilirubin 0.7 mg/dL (0.2-1.0) Aspartate Amino Transferase (AST) 32 U/L (13-40) Alanine Aminotransferase (ALT) 26 U/L (7-40) Alkaline Phosphatase 100 U/L (46-116) Total Protein 8.2 g/dL (5.7-8.2) Albumin 5.0 g/dL (3.2-4.8) Lipase 26 U/L (12-53) Other Laboratory Tests 10/27/24 06:10 Brief Hx & Hospital Course: This is a 64 years old female come to emergency department because of severe abdominal pain. The patient had nausea, vomiting, diarrhea for couple day with severe abdominal pain. The CT scan abdomen pelvis showed possible gallbladder edema. The patient subsequently had ultrasound of the gallbladder done which showed normal gallbladder no Garcia sign no acute cholecystitis. Patient this had cholelithiasis. Patient continuing to have intractable nausea and vomiting and abdominal pain. Subsequently the patient had HIDA scan done showed normal functioning gallbladder with no common bile duct dilation. Her blood culture showed Salmonella. Her stool culture showed no Salmonella. Stool also negative for C diff. Patient was treated with IV antibiotic Rocephin and Flagyl. The patient subsequently doing better. She can eat a little bit however continuing to have diarrhea. The patient finally did not have diarrhea for 24 hours. Patient is able to keep food down and not vomited. The patient will be discharged home today. Continuing oral antibiotic with Levaquin with sensitive to her Salmonella for seven days. Activity as tolerated. Diet per home diet. Physical exam: HEENT: Normocephalic atraumatic pupils equal react to light and accommodation. Extraocular muscles intact, conjunctiva pink, oropharynx moist, no thrush, no exudate. Lymphatic: No lymphadenopathy Cardiovascular exam: S1, S2 was heard. No murmurs, rubs, gallops Lung: Clear on auscultation bilaterally, no wheeze, rale, rhonchi. GI: Abdominal soft, nondistended, nontenderness, positive bowel sounds. Extremity: No crepitus, cyanosis, edema. Pedal pulses present bilateral. Full range of motion. Skin: Normal turgor, no rash. Psych: Alert, oriented x3. Neurology: No focal deficits, cranial nerve II to XII grossly intact. This medical document was created using an electronic medical record system with [employer] direct computerized dictation system. Although this document has been carefully reviewed, there may still be some phonetic and typographical errors. These areas are purely typographical due to imperfections of the software programs, and do not reflect any compromise in the patient's medical care. Condition at Discharge: Stable Final Diagnosis/Problems List Salmonella bacteremia Diarrhea Gallbladder edema,US rule out cholecystitis Sepsis Intractable nausea and vomiting Salmonella infection per stool culture Hypokalemia Discharge Disposition: Home Discharge Instruct/Medications Diet: Regular Activity: No Restrictions, As Tolerated Follow Up/Referral: pcp 1-2 weeks Medications: amoxicillin 500mg bid Scheduled Amoxicillin Trihydrate (Amoxicillin), 1 CAP PO BID Discharge Statement: "Patient was advised to return to the ER or call 911 if any headaches, dizziness, shortness of breath, chest pain, abdominal pain, bleeding, fevers, or worsening of medical condition. Patient was counseled about treatment plan, medications, possible side effects, patientverbalized understanding. All questions were answered to the best of my ability. This discharge took greater then 30 minutes in planning, reviewing documentation, counseling the patient, and discussing with other team members." ASSESSMENT ASSESSMENT Assessment Salmonella bacteremia Date of Service: Oct 27, 2024 Billing Provider: JAGJIT NAYLOR MD Common Visit Codes: 94016-VIV/OBS DISCH DAY >30min JAGJIT NAYLOR MD Oct 27, 2024 13:29
--- NOTE | 2024-10-27 19:57 | DVHPN2 ---
Progress Note - Dictate Date Seen: Oct 27, 2024 Medical Necessity Reason Pt with a Central, PICC or Fol: No Subjective Patient was seen and evaluated in follow up. Patient has no new complaints at this time. Patient denies any cardiac symptoms. Patient is cardiac stable for discharge. vital signs Vital Sign Date Time Temp Pulse Resp B/P (MAP) Pulse Ox O2 Delivery O2 Flow Rate FiO2 10/27/24 09:08 97.8 80 18 164/78 (106) 98 97.8 10/27/24 08:00 Room Air* 0 21 Total Intake and Output 10/26/24 10/26/24 10/27/24 15:00 23:00 07:00 Intake Total 150 ml 800 ml 800 ml Balance 150 ml 800 ml 800 ml medications Current Medications Medications Dose Ordered Sig/Olga Route Start Time Stop Time Status Last Admin Dose Admin Sodium Chloride 10 ml Q8HR IV 10/20/24 14:00 10/27/24 05:35 10 ML Docusate Sodium 100 mg BIDPRN PRN PO 10/20/24 13:15 Acetaminophen 650 mg Q6HP PRN PO 10/20/24 13:15 10/26/24 16:54 650 MG Acetaminophen/ Hydrocodone Bitart 1 tab Q4HP PRN PO 10/20/24 13:15 10/25/24 11:36 1 TAB Hydromorphone HCl 0.5 mg Q4HP PRN IV 10/20/24 13:15 10/24/24 12:30 0.5 MG Ondansetron HCl 4 mg Q4HP PRN IV 10/20/24 13:15 10/24/24 12:29 4 MG Ceftriaxone Sodium 50 ml @ 100 mls/hr DAILY@09 IV 10/21/24 09:00 10/27/24 10:00 100 MLS/HR Metronidazole 100 ml @ 100 mls/hr Q8HR IV 10/20/24 22:00 10/27/24 05:35 100 MLS/HR Loperamide HCl 2 mg Q6HP PRN PO 10/21/24 11:00 10/26/24 13:18 2 MG Enoxaparin Sodium 80 mg Q12HR SC 10/21/24 22:00 10/27/24 10:00 80 MG Pantoprazole Sodium 40 mg DAILY PO 10/24/24 10:00 10/27/24 10:00 40 MG Sucralfate 1 gm TID PO 10/26/24 14:00 10/27/24 05:35 1 GM objective GENERAL: Alert and oriented x 3. No acute distress. EYES: PERRL, EOMI. Anicteric. HENT: Moist mucous membranes. LUNGS: Clear to auscultation bilaterally. CARDIOVASCULAR: Irregular rate and rhythm. ABDOMEN: Soft, nontender and nondistended. EXTREMITIES: No edema. NEUROLOGIC: No focal neurological deficits. SKIN: Warm, dry. laboratory and microbiology Laboratory Tests 10/27/24 06:10 Test 10/27/24 06:10 Range/Units Serum Glucose 105 74-106 mg/dL Problem List Sepsis likely due to intra-abdominal infection. Gallbladder distended. Elevated troponin. Assessment/Plan Continued all current supportive medical care. IV antibiotics as ordered. DVT and GI prophylactics. Carafate. Additional plan as per the hospital course. Dietary Evaluation Review Comments: 1) Encourage optimal PO intake 2) Consider soluble fiber supplement 3) Advance to 60g [facility] cardiac diet when medically feasible 4) Refer to outpatient RD for weight management 5) Continue to monitor I&O, labs, and skin integrity Expected Outcomes/Goals: 1) appetite and labs to improve 2) diet to advance 3) GI symptoms to resolve 4) f/u in 3-5 days Plan discussed with: Patient ALMA DELIA SONI MD Oct 27, 2024 12:41
== END 2024-10-27 15:45 | disposition home or self-care (01) | DRG 720 ==
LOC: ER 09:51 → OVERFLOW 13:15 → CENTRAL 10-21 15:22
PROVIDERS: ADMIT Internal Medicine; ATTEND Internal Medicine
DX: A02.1 Salmonella sepsis (principal); I24.89 Other forms of acute ischemic heart disease; K76.0 Fatty (change of) liver, not elsewhere classified; I10 Essential (primary) hypertension; A04.9 Bacterial intestinal infection, unspecified; K82.8 Other specified diseases of gallbladder; K29.70 Gastritis, unspecified, without bleeding; E87.6 Hypokalemia; K59.00 Constipation, unspecified; Z83.3 Family history of diabetes mellitus
CPT/HCPCS: 36415; 74176; 76705; 78226; 80048; 80053; 81001; 83605; 83690; 84484; 85007; 85025; 85027; 85048; 87040; 87045; 87077; 87186; 87427; 87493; 93005; 93306; 96365; 96375; 99291; G0378; J2405; J2470; J3490

== ENCOUNTER 2024-12-19 12:23 | Emergency (ER) | payer MEDICAID ==
[~2024-12-19] VITALS: Ht 149.9 cm; Wt 77.4 kg
[~2024-12-19 12:23] MED LIST: AMOX500C2 PO
--- NOTE | 2024-12-19 12:53 | ED.PDOC ---
GI ASSESSMENT HPI Comments This is a 64 year old female presenting to the ED with chief complaint of abdominal pain. Patient reports that she has been experiencing diffuse abdominal pain with associated nausea, chills, and increased anxiety for the past 3 days. Patient relays that she had started Ozempic 2 weeks ago along with having a recent Salmonella infection a month ago. patient denies any fever, vomiting, diarrhea, chest pain, SOB, dysuria, hematuria, or flank pain. Chief Complaint: Nausea/Vomiting Time Seen by MD: 12:51 Primary Care Provider: MELONY Reviewed Notes: Nurses Notes, Medications, Allergies Allergies: Coded Allergies: NO KNOWN ALLERGIES (Unverified , 09/28/12) Home Meds Active Scripts Metoclopramide Hcl (Reglan) 10 Mg Tab, 10 MG PO BID for 15 Days, #30 TAB Prov:CORNEL SANCHEZ MD 12/19/24 Omeprazole (Gnp Omeprazole) 20 Mg Tab, 1 TAB PO BID, #90 TAB 1 Refill Prov:CORNEL SANCHEZ MD 12/19/24 Amoxicillin Trihydrate (Amoxicillin) 500 Mg Cap, 1 CAP PO BID, #20 CAP Prov:JAGJIT NAYLOR MD 10/27/24 Information Source: Patient, Relative (Child) Mode of Arrival: Ambulatory Timing: Days Duration: Since onset Prehospital treatment: None Quality: Aching Vomitus: None Stool: Normal Severity: Moderate Recent: None Recent Hx of: None Pain Location: Diffuse Modifying Factors: Nothing Associated sign and symptoms: Nausea, Abdominal Pain Past Medical History PAST MEDICAL HISTORY: Anxiety, Depression, DM, HTN Surgical History: Hysterectomy NURSERY NURSE History: No Pertinent NURSERY NURSE History Family History Family History: Reviewed,noncontributory to illness, Unknown Social History Smoker: Non-Smoker Alcohol: Denies ETOH Use Drugs: Denies Drug Use Lives In: Home Constitutional: reports: chills; denies: diaphoresis, fatigue, fever, malaise, sweats, weakness, others EENTM: denies: blurred vision, double vision, ear bleeding, ear discharge, ear drainage, ear pain, ear ringing, eye pain, eye redness, hearing loss, mouth pain, mouth swelling, nasal discharge, nose bleeding, nose congestion, nose pain, photophobia, tearing, throat pain, throat swelling, voice changes, others Respiratory: denies: cough, hemoptysis, orthopnea, SOB at rest, shortness of breath, SOB with excertion, stridor, wheezing, others Cardiovascular: denies: chest pain, dizzy spells, diaphoresis, Dyspnea on exertion, edema, irregular heart beat, left arm pain, lightheadedness, pal pitations, PND, syncope, others Gastrointestinal: reports: abdominal pain, nausea; denies: abdomen distended, blood streaked bowels, constipated, diarrhea, dysphagia, difficulty swallowing, hematemesis, melena, poor appetite, poor fluid intake, rectal bleeding, rectal pain, vomiting, others Genitourinary: denies: abnormal vagina bleeding, burning, dyspareunia, dysuria, flank pain, frequency, hematuria, incontinence, pain, , vagina discharge, urgency, others Neurological: denies: dizziness, fainting, headache, left sided numbness, left sided weakness, numbness, paresthesia, pre-existing deficit, right sided numbness, right sided weakness, seizure, speech problems, tingling, tremors, weakness, others Musculoskeletal: denies: back pain, gout, joint pain, joint swelling, muscle pain, muscle stiffness, neck pain, others Integumetry: denies: bruises, change in color, change in hair/nails, dryness, laceration, lesions, lumps, rash, wounds, others Allergic/Immunocompromised: denies: Difficulty Healing, Frequent Infections, Hives, Itching, others Hematologic/Lymphatic: denies: anemia, blood clots, easy bleeding, easy bruising, swollen glands, others Endocrine: denies: excessive hunger, excessive sweating, excessive thirst, excessive urination, flushing, intolerance to cold, intolerance to heat, une xplained weight gain, unexplained weight loss, others Psychiatric: reports: anxiety; denies: bipolar disorder, depression, hopeless, panic disorder, schizophrenia, sleepless, suicidal, others All Other Systems: Reviewed and Negative Physical Exam General Appearance: Mild Distress, Moderate Distress, Obese HEENT: Normal ENT Inspection, PERRL/EOMI Neck: Full Range of Motion, Non-Tender, Normal, Normal Inspection Respiratory: Chest Non-Tender, Lungs Clear, No Accessory Muscle Use, No Respiratory Distress, Normal Breath Sounds Cardiovascular: No Edema, No JVD, No Murmur, No Gallop, Normal Peripheral Pulses, Regular Rate/Rhythm Breast Exam: Deferred Gastrointestinal: Diffuse, Epigastric, LLQ, No Organomegaly, No Pulsatile Mass, Normal Bowel Sounds, RLQ, Soft, Suprapubic, Tenderness Genitalia: Deferred Pelvic: Deferred Rectal: Deferred Extremities: No calf tenderness, Normal capillary refill, Normal inspection, Normal range of motion, Non-tender, No pedal edema 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 Was a procedure done?: No GI differential Dx Differential Diagnosis: Appendicitis, Cholecystitis, Diverticular disease, Gastritis/PUD, Gastroenteritis, Inflammatory BD, Pancreatitis, UTI, Dehydration, Diabetes/ DKA, Drug toxicity, Electrolyte Imbalance, Food Poisoning, Renal Failure, Ischemic Bowel, Mass, Anemia X-Ray, Labs, Meds, VS Vital Signs Date Time Temp Pulse Resp B/P (MAP) Pulse Ox O2 Delivery O2 Flow Rate FiO2 12/19/24 16:46 98.4 92 16 139/92 (108) 97 98.4 12/19/24 16:46 92 16 97 Room Air 12/19/24 15:52 92 12/19/24 15:24 98.4 91 16 161/94 (116) 95 98.4 12/19/24 12:25 98.6 76 18 134/72 97 98.6 Lab Test 12/19/24 14:15 12/19/24 13:02 Range/Units Troponin I High Sensitivity 43 *H 44 *H </=34 ng/L White Blood Count 5.9 4.4-10.8 10^3/uL Red Blood Count 4.15 4.0-5.20 10^6/uL Hemoglobin 13.7 12.2-16.2 g/dL Hematocrit 40.7 36.0-46.0 % Mean Corpuscular Volume 98.1 80.0-100.0 fL Mean Corpuscular Hemoglobin 32.9 H 28.0-32.0 pg Mean Corpuscular Hemoglobin Concent 33.6 32.0-36.0 g/dL Red Cell Distribution Width 14.7 H 11.8-14.3 % Platelet Count 311 140-450 10^3/uL Mean Platelet Volume 8.2 6.9-10.8 fL Neutrophils (%) (Auto) 52.7 37.0-80.0 % Lymphocytes (%) (Auto) 28.9 10.0-50.0 % Monocytes (%) (Auto) 17.2 H 0.0-12.0 % Eosinophils (%) (Auto) 0.3 0.0-7.0 % Basophils (%) (Auto) 0.9 0.0-2.0 % Neutrophils # (Auto) 3.1 1.6-8.6 10 ^3/uL Lymphocytes # (Auto) 1.7 0.4-5.4 10 ^3/uL Monocytes # (Auto) 1.0 0-1.3 10 ^3/uL Eosinophils # (Auto) 0 0-0.8 10 ^3/uL Basophils # (Auto) 0.1 0-0.2 10 ^3/uL Nucleated Red Blood Cells 0.1 % Sodium Level 140 136-145 mmol/L Potassium Level 4.5 3.5-5.1 mmol/L Chloride Level 103 98-107 mmol/L Carbon Dioxide Level 26 20-31 mmol/L Anion Gap 11 5-15 Blood Urea Nitrogen 8 L 9-23 mg/dL Creatinine 0.76 0.550-1.02 mg/dL Glomerular Filtration Rate Calc 87 >90 mL/min BUN/Creatinine Ratio 10.5 10.0-20.0 Serum Glucose 99 74-106 mg/dL Calcium Level 9.5 8.7-10.4 mg/dL Magnesium Level 2.0 1.6-2.6 mg/dL Total Bilirubin 0.4 0.2-1.0 mg/dL Aspartate Amino Transferase (AST) 50 H 13-40 U/L Alanine Aminotransferase (ALT) 34 7-40 U/L Alkaline Phosphatase 95 46-116 U/L Total Protein 7.7 5.7-8.2 g/dL Albumin 4.7 3.2-4.8 g/dL Lipase 45 12-53 U/L Current Medications Medications (Trade) Dose Ordered Sig/Olga Route Start Time Stop Time Status Last Admin Metoclopramide HCl (Reglan Injection) 10 mg ONCE ONCE IV 12/19/24 13:00 12/19/24 13:01 DC 12/19/24 14:36 Sodium Chloride 500 ml @ 500 mls/hr Q1H ONCE IVB 12/19/24 13:00 12/19/24 13:59 DC 12/19/24 14:36 X-Ray, Labs, Meds, VS Comment Course the in the emergency department eventful patient came in complaining of abdominal cramps and nausea Patient has a history of diabetes hypertension anxiety and depression the abdomen and pelvis are normal except for lumbar spine DJD Troponin 44 and 43 CBC normal Magnesium 2.0 CMP negative Lipase 45 Patient will be discharged home to follow up with your PCP Time of 1ST Reevaluation: 13:50 Reevaluation 1ST: Unchanged Patient Education/Counseling: Diagnosis, Treatment Family Education/Counseling: Diagnosis, Treatment SEPSIS Sepsis Screen Date sepsis recognized/suspect: Dec 19, 2024 Time Sepsis recognized/suspect: 1227 Recent Procedure: No On Antibiotic Therapy: No Respiratory Rate >20: No Heart Rate >90: No Temp<36 C (96.8 F) or >38.3 C: No SBP <90 or MAP <65 mmHG: No New Acute Mental Status Change: No Is the patient on CPAP, BIPAP,: No Physician Orders Ct Ab Pel With Iv Con Only (12/19/24 12:52) Heplock Iv (12/19/24 12:52) Blood Pressure (12/19/24 12:52) Electrocardigram (12/19/24 12:52) Vital Signs Date Time Temp Pulse Resp B/P (MAP) Pulse Ox O2 Delivery O2 Flow Rate FiO2 12/19/24 16:46 98.4 92 16 139/92 (108) 97 98.4 12/19/24 16:46 92 16 97 Room Air 12/19/24 15:52 92 12/19/24 15:24 98.4 91 16 161/94 (116) 95 98.4 12/19/24 12:25 98.6 76 18 134/72 97 98.6 Laboratory Tests Test 12/19/24 13:02 White Blood Count 5.9 10^3/uL (4.4-10.8) Medications Medications Dose Ordered Sig/Olga Route Start Time Stop Time Status Last Admin Dose Admin Metoclopramide HCl 10 mg ONCE ONCE IV 12/19/24 13:00 12/19/24 13:01 DC 12/19/24 14:36 Sodium Chloride 500 ml @ 500 mls/hr Q1H ONCE IVB 12/19/24 13:00 12/19/24 13:59 DC 12/19/24 14:36 Departure 1 Departure Time of Disposition: 16:03 Impression: Primary Impression: Nonspecific abdominal pain Disposition: HOME / SELF CARE / HOMELESS Condition: Fair Additional Instructions: Push fluids and follow up with your PCP e-Prescriptions Metoclopramide Hcl (Reglan) 10 Mg Tab 10 MG PO BID for 15 Days, #30 TAB Prov: CORNEL SANCHEZ MD 12/19/24 Omeprazole (Gnp Omeprazole) 20 Mg Tab 1 TAB PO BID, #90 TAB 1 Refill Prov: CORNEL SANCHEZ MD 12/19/24 Discharged With: Self, Relative Critical Care Note Critical Care Time?: No Stability Stability form required: No Heart Score Heart Score: Heart Score Response (Comments) Value History Slightly Suspicious 0 EKG Repolarization Disturb 1 Age 45-64 1 Risk Factors 1 or 2 risk factors 1 Troponin 1-2 x's Normal limit 1 Total 4 I personally scribed for CORNEL SANCHEZ MD ([email or web address]) on 12/19/24 at 12:53. Electronically submitted by Joaquin Ashley ([email or web address]). CORNEL SANCHEZ MD Dec 19, 2024 12:53
[2024-12-19 13:16] LABS: Hematocrit 40.7 % (36.0-46.0); Hemoglobin 13.7 g/dL (12.2-16.2); Mean Corpuscular Hemoglobin 32.9 pg (28.0-32.0); Mean Corpuscular Volume 98.1 fL (80.0-100.0); Nucleated Red Blood Cells % 0.1 %
[2024-12-19 13:40] LABS: Alanine Aminotransferase 34 U/L (7-40); Albumin 4.7 g/dL (3.2-4.8); Alkaline Phosphatase 95 U/L (46-116); Anion Gap 11 (5-15); BUN/Creatinine Ratio 10.5 (10.0-20.0); Bilirubin, Total 0.4 mg/dL (0.2-1.0); Blood Urea Nitrogen 8 mg/dL (9-23); Calcium 9.5 mg/dL (8.7-10.4); Carbon Dioxide 26 mmol/L (20-31); Chloride 103 mmol/L (98-107); Glucose 99 mg/dL (74-106); Magnesium 2.0 mg/dL (1.6-2.6); Potassium 4.5 mmol/L (3.5-5.1); Sodium 140 mmol/L (136-145); Total Protein 7.7 g/dL (5.7-8.2)
[2024-12-19 13:45] LABS: Lipase 45 U/L (12-53)
[2024-12-19] MEDS: SODIUM CHLORIDE 0.9% 1,000 ML IV ONE (14:10)
[2024-12-19] MEDS: MORPHINE SULFATE 4 MG/ML SYR/VIAL IV ONE (14:10)
[2024-12-19] MEDS: SODIUM CHLORIDE 0.9% 500 ML IVB ONE (14:36)
[2024-12-19] MEDS: IOHEXOL 300 MG/ML 100ML BOTTLE IJ ONE (14:36)
[2024-12-19] MEDS: METOCLOPRAMIDE HCL 5MG/ml INJ 2ml VIAL IV ONE (14:36)
--- NOTE | 2024-12-19 15:19 | DVH ---
EXAM: CT CT AB PEL WITH IV CON ONLY HISTORY: Diffuse abdominal pain COMPARISON: CT scan of the abdomen and pelvis dated 10/20/2024. TECHNIQUE: Helical CT images of the abdomen and pelvis were performed with 100 mL Omnipaque 300 IV co ntrast. Sagittal and coronal reformatted images were obtained. This CT exam was performed using 1 or more of the following dose reduction techniques: Automated exposure control, adjustment of the mA and /or kv according to patient size, or the use of iterative reconstruction techniques. Radiation Dose Information: CT Dose: CTDI volume is 19.08 mGy. Dose-length product is 1023.2 mGy*cm FINDINGS: CT abdomen: The lung bases are clear. The heart is borderline enlarged. The liver, spleen, gallbladde r, pancreas, kidneys, and adrenal glands are unremarkable. No abdominal aortic aneurysm or dissection . CT pelvis: No abnormal bowel dilatation, free air, or free fluid. The appendix is not definitely visu alized, and there is no specific evidence of acute appendicitis. The urinary bladder is unremarkable . The uterus is surgically absent. 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 Th ere is advanced lower lumbar degenerative disc disease and facet arthropathy with multilevel signific ant neural foraminal stenosis bilaterally. There is grade 1 anterolisthesis L4 on L5 without evidenc e of spondylolysis. There is mild thoracolumbar levoscoliosis. IMPRESSION: 1. Postoperative changes of hysterectomy and possibly also appendectomy. 2. Advanced lower Lumbar degenerative disc disease. 3. No evidence of bowel obstruction or other acute process in the abdomen or pelvis.
[2024-12-19] MEDS ORDERED: OMEP20TA PO (16:10)
[2024-12-19] MEDS ORDERED: METO-281 PO (16:10)
[2024-12-19 16:46] VITALS: BP 139/92; PULSE 92; RESP 16; TEMP 98.4; O2SAT 97
--- NOTE | 2024-12-21 11:24 | ECG ---
[facility] Test Date: 2024-12-19 Test Time: 15:52:52 Pat Name: SANDI CANELA Department: ED Room: Gender: F Manager Music: YADIRA : 1960 Requested By: CORNEL SANCHEZ Order Number: [id number] Reading MD: Rolando Campos Measurements Intervals [place] Rate: 92 P: 58 IN: 132 QRS: 37 QRSD: 95 T: -57 QT: 363 QTc: 450 Interpretive Statements Sinus rhythm LVH with secondary repolarization abnormality Electronically Signed On 12-26-2024 13:43:42 PDT by Rolando Campos Please click the below link to view image of tracing.
== END 2024-12-19 16:48 | disposition home or self-care (01) ==
LOC: ER 12:23
DX: R10.84 Generalized abdominal pain (principal); I10 Essential (primary) hypertension; E11.9 Type 2 diabetes mellitus without complications; F41.9 Anxiety disorder, unspecified; F32.A Depression, unspecified; Z79.899 Other long term (current) drug therapy; Z90.710 Acquired absence of both cervix and uterus
CPT/HCPCS: 36415; 74177; 80053; 83690; 83735; 84484; 85025; 93005; 96361; 96374; 99285; J2765; J7040; Q9967

== ENCOUNTER 2024-12-21 11:34 | Emergency (ER) | payer MEDICAID ==
[~2024-12-21] VITALS: Ht 149.9 cm; Wt 75.7 kg
[~2024-12-21 11:34] MED LIST changes: +METO-281 PO; +OMEP20TA PO
[2024-12-21 11:36] VITALS: BP 135/84; RESP 20; TEMP 98.8; O2SAT 97
[2024-12-21 11:47] VITALS: PULSE 104
[2024-12-21] MEDS ORDERED: HYDROmorphone HCL 2 MG/ML VL/or syr IV ONE (12:00)
[2024-12-21] MEDS ORDERED: ONDANSETRON HCL 4 MG/2 ML VIAL IV ONE (12:00)
[2024-12-21] MEDS ORDERED: SODIUM CHLORIDE 0.9% 1,000 ML IV ONE (12:00)
--- NOTE | 2024-12-21 12:02 | ED.PDOC ---
GI ASSESSMENT HPI Comments This is a 64 year old female presenting to the ED with chief complaint of abdominal pain. Patient reports that she has been experiencing diffuse abdominal pain with associated nausea and increased anxiety for the past 6 days. Patient seen 2 days ago. Patient denies any vomiting, diarrhea, dizziness, fever, chills, dysuria, and hematuria. Chief Complaint: Abdominal Pain Time Seen by MD: 11:58 Primary Care Provider: MELONY Reviewed Notes: Nurses Notes, Medications, Allergies Allergies: Coded Allergies: NO KNOWN ALLERGIES (Unverified , 09/28/12) Home Meds Active Scripts Metoclopramide Hcl (Reglan) 10 Mg Tab, 10 MG PO BID for 15 Days, #30 TAB Prov:CORNEL SANCHEZ MD 12/19/24 Omeprazole (Gnp Omeprazole) 20 Mg Tab, 1 TAB PO BID, #90 TAB 1 Refill Prov:CORNEL SANCHEZ MD 12/19/24 Amoxicillin Trihydrate (Amoxicillin) 500 Mg Cap, 1 CAP PO BID, #20 CAP Prov:JAGJIT NAYLOR MD 10/27/24 Information Source: Patient Mode of Arrival: Ambulatory Timing: Days Duration: Since onset Prehospital treatment: None Quality: Aching Vomitus: None Stool: Normal Severity: Moderate Recent: None Recent Hx of: None Pain Location: Diffuse Modifying Factors: Nothing Associated sign and symptoms: Nausea, Abdominal Pain Past Medical History PAST MEDICAL HISTORY: Anxiety, Depression, DM, HTN Surgical History: Hysterectomy [employer]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 Family History Family History: Reviewed,noncontributory to illness, Unknown Social History Smoker: Non-Smoker Alcohol: Denies ETOH Use Drugs: Denies Drug Use Lives In: Home Constitutional: denies: chills, diaphoresis, fatigue, fever, malaise, sweats, weakness, others EENTM: denies: blurred vision, double vision, ear bleeding, ear discharge, ear drainage, ear pain, ear ringing, eye pain, eye redness, hearing loss, mouth pain, mouth swelling, nasal discharge, nose bleeding, nose congestion, nose pain, photophobia, tearing, throat pain, throat swelling, voice changes, others Respiratory: denies: cough, hemoptysis, orthopnea, SOB at rest, shortness of breath, SOB with excertion, stridor, wheezing, others Cardiovascular: denies: chest pain, dizzy spells, diaphoresis, Dyspnea on exertion, edema, irregular heart beat, left arm pain, lightheadedness, palpitations, PND, syncope, others Gastrointestinal: reports: abdominal pain, nausea; denies: abdomen distended, blood streaked bowels, constipated, diarrhea, dysphagia, difficulty swallowing, hematemesis, melena, poor appetite, poor fluid intake, rectal bleeding, rectal pain, vomiting, others Genitourinary: denies: abnormal vagina bleeding, burning, dyspareunia, dysuria, flank pain, frequency, hematuria, incontinence, pain, , vagina discharge, urgency, others Neurological: denies: dizziness, fainting, headache, left sided numbness, left sided weakness, numbness, paresthesia, pre-existing deficit, right sided numbness, right sided weakness, seizure, speech problems, tingling, tremors, weakness, others Musculoskeletal: denies: back pain, gout, joint pain, joint swelling, muscle pain, muscle stiffness, neck pain, others Integumetry: denies: bruises, change in color, change in hair/nails, dryness, laceration, lesions, lumps, rash, wounds, others Allergic/Immunocompromised: denies: Difficulty Healing, Frequent Infections, Hives, Itching, others Hematologic/Lymphatic: denies: anemia, blood clots, easy bleeding, easy bruising, swollen glands, others Endocrine: denies: excessive hunger, excessive sweating, excessive thirst, excessive urination, flushing, intolerance to cold, intolerance to heat, unexplained weight gain, unexplained weight loss, others Psychiatric: reports: anxiety; denies: bipolar disorder, depression, hopeless, panic disorder, schizophrenia, sleepless, suicidal, others All Other Systems: Reviewed and Negative Physical Exam General Appearance: No Apparent Distress, Normal HEENT: Normal ENT Inspection, Pharynx Normal, TMs Normal Neck: Full Range of Motion, Non-Tender, Normal, Normal Inspection Respiratory: Chest Non-Tender, Lungs Clear, No Accessory Muscle Use, No Respiratory Distress, Normal Breath Sounds Cardiovascular: No Edema, No JVD, No Murmur, No Gallop, Normal Peripheral Puls es, Regular Rate/Rhythm Breast Exam: Deferred Gastrointestinal: No Organomegaly, No Pulsatile Mass, Normal Bowel Sounds, Soft, Tenderness (Diffuse tenderness) Genitalia: Deferred Pelvic: Deferred Rectal: Deferred Extremities: No calf tenderness, Normal capillary refill, Normal inspection, Normal range of motion, Non-tender, No pedal edema Musculoskeletal : Apperance: Normal Neurologic: Alert, shuttle spotter II-XII nml as Tested, No Motor Deficits, Normal Affect, Normal Mood, No Sensory Deficits Cerebellar Function: Normal Reflexes: Normal Skin: Dry, Normal Color, Warm Lymphatic: No Adenopathy Was a procedure done? Was a procedure done?: No GI differential Dx Differential Diagnosis: Gastroenteritis, GI hemorrhage, UTI, Urolithiasis, Dehydration, Electrolyte Imbalance X-Ray, Labs, Meds, VS Vital Signs Date Time Temp Pulse Resp B/P (MAP) Pulse Ox O2 Delivery O2 Flow Rate FiO2 12/21/24 11:47 104 12/21/24 11:36 98.8 107 20 135/84 97 98.8 Lab Test 12/21/24 12:29 Range/Units White Blood Count 4.8 4.4-10.8 10^3/uL Red Blood Count 4.35 4.0-5.20 10^6/uL Hemoglobin 14.2 12.2-16.2 g/dL Hematocrit 42.4 36.0-46.0 % Mean Corpuscular Volume 97.6 80.0-100.0 fL Mean Corpuscular Hemoglobin 32.8 H 28.0-32.0 pg Mean Corpuscular Hemoglobin Concent 33.6 32.0-36.0 g/dL Red Cell Distribution Width 14.6 H 11.8-14.3 % Platelet Count 291 140-450 10^3/uL Mean Platelet Volume 7.7 6.9-10.8 fL Neutrophils (%) (Auto) 57.3 37.0-80.0 % Lymphocytes (%) (Auto) 30.0 10.0-50.0 % Monocytes (%) (Auto) 11.8 0.0-12.0 % Eosinophils (%) (Auto) 0.1 0.0-7.0 % Basophils (%) (Auto) 0.8 0.0-2.0 % Neutrophils # (Auto) 2.7 1.6-8.6 10 ^3/uL Lymphocytes # (Auto) 1.4 0.4-5.4 10 ^3/uL Monocytes # (Auto) 0.6 0-1.3 10 ^3/uL Eosinophils # (Auto) 0 0-0.8 10 ^3/uL Basophils # (Auto) 0 0-0.2 10 ^3/uL Nucleated Red Blood Cells 0.1 % Sodium Level 141 136-145 mmol/L Potassium Level 4.2 3.5-5.1 mmol/L Chloride Level 103 98-107 mmol/L Carbon Dioxide Level 26 20-31 mmol/L Anion Gap 12 5-15 Blood Urea Nitrogen 9 9-23 mg/dL Creatinine 0.83 0.550-1.02 mg/dL Glomerular Filtration Rate Calc 79 >90 mL/min BUN/Creatinine Ratio 10.8 10.0-20.0 Serum Glucose 154 H 74-106 mg/dL Calcium Level 9.7 8.7-10.4 mg/dL Troponin I High Sensitivity 45 *H </=34 ng/L Time of 1ST Reevaluation: 12:57 Reevaluation 1ST: Unchanged Patient Education/Counseling: Diagnosis, Treatment Family Education/Counseling: No Family Present SEPSIS Sepsis Screen Date sepsis recognized/suspect: Dec 21, 2024 Time Sepsis recognized/suspect: 1139 Recent Procedure: No On Antibiotic Therapy: No Respiratory Rate >20: No Heart Rate >90: Yes Temp<36 C (96.8 F) or >38.3 C: No SBP <90 or MAP <65 mmHG: No New Acute Mental Status Change: No Is the patient on CPAP, BIPAP,: No Physician Orders Urinalysis (12/21/24 11:50) Electrocardigram (12/21/24 13:36) Vital Signs Date Time Temp Pulse Resp B/P (MAP) Pulse Ox O2 Delivery O2 Flow Rate FiO2 12/21/24 11:47 104 12/21/24 11:36 98.8 107 20 135/84 97 98.8 Laboratory Tests Test 12/21/24 12:29 White Blood Count 4.8 10^3/uL (4.4-10.8) Departure 1 Departure Time of Disposition: 15:49 (Patient presented with abdominal pain that was concerning for possible appendicits, gastritis, cholecystitis, colitis, gastroenteritis, sbo, or orther possible surgical emergency. Data: 1. I ordered and reviewed the result of at least 3 labs including a CBC, BMP, and Urinalysis. 2. I independently interpreted the following tests: Recent CT scan is benignRisk:This patient has a high risk of morbidity due to further diagnostic testing or treatment and may suffer from an acute abdominal process disorder. Workup reveals intractable abdominal pain and patient should be admitted for further workup. and possible expert consultation. ) Impression: Primary Impression: Intractable abdominal pain Disposition: ADMITTED INPATIENT Admit to: Med Surg Condition: Serious Critical Care Note Critical Care Time?: Yes Critical care comment: Intractable abdominal pain Authorized and Performed by: Kamila Ray MD Total critical care time: Approximately 37 minutes Due to a high probability of clinically significant, life threatening deterioration, the patient required my highest level of preparedness to intervene emergently and I personally spent this critical care time directly and personally managing the patient. This critical care time included obtaining a history; examining the patient; pulse oximetry; ordering and review of studies; arranging urgent treatment with development of a management plan; evaluation of patient's response to treatment; frequent reassessment; and, discussions with other providers. This critical care time was performed to assess and manage the high probability of imminent, life-threatening deterioration that could result in multi-organ failure. It was exclusive of separately billable procedures and treating other patients and teaching time. Please see my other sections and the rest of the note for further information on patient assessment and treatment. Stability Stability form required: No Heart Score Heart Score: Heart Score Response (Comments) Value History Moderate Suspicious 1 EKG Repolarization Disturb 1 Age 45-64 1 Risk Factors >3 or Hx ASHD 2 Troponin 1-2 x's Normal limit 1 Total 6 I personally scribed for KAMILA RAY MD ([email or web address]) on 12/21/24 at 12:02. Electronically submitted by Joaquin Ashley ([email or web address]). KAMILA RAY MD Dec 21, 2024 12:02
[2024-12-21 12:45] LABS: Hematocrit 42.4 % (36.0-46.0); Hemoglobin 14.2 g/dL (12.2-16.2); Mean Corpuscular Hemoglobin 32.8 pg (28.0-32.0); Mean Corpuscular Volume 97.6 fL (80.0-100.0); Nucleated Red Blood Cells % 0.1 %
[2024-12-21 12:54] LABS: Anion Gap 12 (5-15); Carbon Dioxide 26 mmol/L (20-31); Chloride 103 mmol/L (98-107); Potassium 4.2 mmol/L (3.5-5.1); Sodium 141 mmol/L (136-145)
[2024-12-21 12:55] LABS: Calcium 9.7 mg/dL (8.7-10.4)
[2024-12-21 13:00] LABS: BUN/Creatinine Ratio 10.8 (10.0-20.0)
[2024-12-21 13:10] LABS: Blood Urea Nitrogen 9 mg/dL (9-23); Glucose 154 mg/dL (74-106)
--- NOTE | 2024-12-22 08:04 | ECG ---
[facility] Test Date: 2024-12-21 Test Time: 11:47:09 Pat Name: SANDI CANELA Department: ED Room: Gender: F Pharmacist Manager: CHELY : 1960 Requested By: KAMILA RAY Order Number: [id number] Reading MD: Rolando Campos Measurements Intervals [place] Rate: 104 P: 76 NC: 127 QRS: 66 QRSD: 91 T: -66 QT: 325 QTc: 428 Interpretive Statements Sinus tachycardia Probable left atrial enlargement RSR' in V1 or V2, right VCD or RVH Probable LVH with secondary repol abnrm Electronically Signed On 12-26-2024 14:18:50 PDT by Rolando Campos Please click the below link to view image of tracing.
== END 2024-12-21 19:57 | disposition left against medical advice (07) ==
LOC: ER 11:34
DX: R10.84 Generalized abdominal pain (principal); I10 Essential (primary) hypertension; E11.9 Type 2 diabetes mellitus without complications; F41.9 Anxiety disorder, unspecified; F32.A Depression, unspecified; Z79.899 Other long term (current) drug therapy; Z90.710 Acquired absence of both cervix and uterus
CPT/HCPCS: 36415; 80048; 84484; 85025; 93005